=== PATIENT | female | born 1955 | race Caucasian/White ===

== ENCOUNTER 2018-06-11 16:04 | Emergency (ER) | payer MEDICARE ==
[~2018-06-11] VITALS: Ht 160 cm; Wt 151.5 kg
--- OUTSIDE RECORDS SUMMARY | 2018-06-11 16:18 | XMS REPORT ---
Author Author Omar Hopkins [facility] Address [address] [place], [place] [id number] Care Team Providers Care Coffee Host Name Role Phone Omar Hopkins PCP Omar Hopkins PreferredProvider Allergies and Adverse Reactions Name Reaction Notes NO KNOWN DRUG ALLERGIES Plan of Treatment Planned Activity Comments Planned Date Planned Time Plan/Goal Discuss Bariatric Surgery options. She needs to lose 100 lbs in order to have Left Total Knee Replacement. Medications Active Name Start Date Estimated Completion Date SIG Comments Multivitamin Oral Tablet take 1 tablet by oral route daily aspirin 81 mg oral tablet take 1 tablet (81 mg) by oral route once daily Fish Oil 1,000 mg oral capsule 04/19/2010 take 2 capsules by oral route daily valsartan-hydrochlorothiazide 160-12.5 mg oral tablet 05/13/2013 TAKE ONE TABLET BY MOUTH EVERY DAY simvastatin 20 mg oral tablet 08/11/2013 TAKE ONE TABLET BY MOUTH EVERY DAY IN THE EVENING simvastatin 20 mg oral tablet 11/27/2013 TAKE ONE TABLET BY MOUTH EVERY DAY IN THE EVENING valsartan-hydrochlorothiazide 160-12.5 mg oral tablet 05/05/2014 TAKE ONE TABLET BY MOUTH EVERY DAY simvastatin 20 mg oral tablet 06/09/2014 TAKE ONE TABLET BY MOUTH ONCE DAILY AT BEDTIME valsartan-hydrochlorothiazide 160-12.5 mg oral tablet 09/08/2014 TAKE ONE TABLET BY MOUTH ONCE DAILY valsartan-hydrochlorothiazide 160-12.5 mg oral tablet 12/01/2014 TAKE ONE TABLET BY MOUTH ONCE DAILY simvastatin 20 mg oral tablet 12/07/2014 TAKE ONE TABLET BY MOUTH ONCE DAILY AT BEDTIME amlodipine 10 mg oral tablet 02/15/2015 TAKE ONE TABLET BY MOUTH ONCE DAILY valsartan-hydrochlorothiazide 160-12.5 mg oral tablet 05/31/2015 TAKE ONE TABLET BY MOUTH ONCE DAILY simvastatin 20 mg oral tablet 06/07/2015 TAKE ONE TABLET BY MOUTH ONCE DAILY AT BEDTIME valsartan-hydrochlorothiazide 160-12.5 mg oral tablet 11/30/2015 TAKE ONE TABLET BY MOUTH ONCE DAILY simvastatin 20 mg oral tablet 12/06/2015 TAKE ONE TABLET BY MOUTH ONCE DAILY AT BEDTIME amlodipine 10 mg oral tablet 02/07/2016 TAKE ONE TABLET BY MOUTH ONCE DAILY amlodipine 10 mg oral tablet 05/08/2016 TAKE ONE TABLET BY MOUTH ONCE DAILY valsartan-hydrochlorothiazide 160-12.5 mg oral tablet 05/30/2016 TAKE ONE TABLET BY MOUTH ONCE DAILY magnesium 250 mg oral tablet take 1 tablet by oral route daily potassium 99 mg oral tablet take 1 tablet by oral route daily ibuprofen 800 mg oral tablet 12/13/2017 TAKE 1 TABLET BY MOUTH THREE TIMES DAILY NEEDED WITH FOOD irbesartan-hydrochlorothiazide 300-12.5 mg oral tablet 01/11/2018 01/06/2019 take 1 tablet by oral route once daily for 90 days Name Start Date Expiration Date SIG Comments Augmentin 500-125 mg oral tablet 02/06/2012 02/13/2012 take 1 tablet by oral route every 12 hours for 7 days Diflucan 100 mg oral tablet 02/06/2012 02/09/2012 take 1 tablet (100 mg) by oral route once daily amoxicillin 500 mg oral capsule 09/20/2012 09/30/2012 take 1 capsule (500 mg) by oral route 3 times per day for 10 days simvastatin 20 mg oral tablet 01/08/2013 02/07/2013 TAKE ONE TABLET BY MOUTH EVERY DAY IN THE EVENING amlodipine 10 mg oral tablet 11/25/2013 05/19/2015 TAKE ONE TABLET BY MOUTH EVERY DAY Augmentin 500-125 mg oral tablet 01/12/2015 01/19/2015 take 1 tablet by oral route every 12 hours for 7 days clindamycin HCl 300 mg oral capsule 07/25/2016 08/01/2016 take 1 capsule (300 mg) by oral route 2 times per day for 7 days simvastatin 20 mg oral tablet 03/19/2017 03/19/2017 TAKE ONE TABLET BY MOUTH ONCE DAILY AT BEDTIME amlodipine 10 mg oral tablet 07/31/2017 07/31/2017 TAKE ONE TABLET BY MOUTH ONCE DAILY Discontinued Name Start Date Discontinued Date SIG Comments niacin 500 mg oral tablet extended release 24 hr 04/07/2011 take 1 tablets (500 mg) by oral route once daily Starting on Simvastatin Calcium 600mg 08/07/2017 one tablet daily Vesicare 5 mg oral tablet 04/28/2011 09/19/2011 take 1 tablet by oral route daily for 30 days Osteo Bi-Flex (5-Loxin) 1,500-400-100 mg-unit-mg oral tablet 04/16/2013 take 1 tablet by oral route daily Diovan HCT 160-12.5 mg oral tablet 04/23/2012 11/27/2013 TAKE ONE TABLET BY MOUTH EVERY DAY generic on list Medrol (Ace) 4 mg oral tablets,dose pack 09/20/2012 12/12/2012 take as directed nystatin-triamcinolone 100,000-0.1 unit/g-% topical cream 12/12/20122012 apply to affected area(s) by topical route 2 times a day fexofenadine 180 mg oral tablet 12/12/2012 04/16/2013 take 1 tablet (180 mg) by oral route once daily Osteo Bi-Flex 250-200 mg oral tablet 08/07/2017 take 1 tablet by oral route daily prednisone 20 mg oral tablet 02/23/2015 03/01/2016 take 3 tablets (60 mg) by oral route once daily for 3 days then 2 tablets (40 mg) daily for 2 days cyclobenzaprine 10 mg oral tablet 02/27/2015 03/01/2016 take 1 tablet (10 mg ) by oral route 3 times per day promethazine-codeine 6.25-10 mg/5 mL oral syrup 07/25/2016 02/09/2017 take 5 milliliters by oral route every 6 hours as needed, not to exceed 30 mL in 24 hours cyclobenzaprine 10 mg oral tablet 02/09/2017 08/07/2017 take 1 tablet (10 mg) by oral route at bedtime valsartan-hydrochlorothiazide 160-12.5 mg oral tablet 10/18/2017 11/28/2017 TAKE ONE TABLET BY MOUTH ONCE DAILY for 90 days Infant Caregiver recall olmesartan-hydrochlorothiazide 40-12.5 mg oral tablet 11/28/2017 11/28/2017 take 1 tablet by oral route once daily for 90 days losartan-hydrochlorothiazide 100-12.5 mg oral tablet 11/28/2017 01/11/2018 take 1 tablet by oral route once daily for 90 days Problem List Description Status Onset Arthritis unspecified Active Hyperlipidemia Active Hypertension Active Vital Signs Date Time BP-Sys(mm[Hg] BP-Jany(mm[Hg]) HR(bpm) RR(rpm) Temp WT HT HC BMI BSA BMI Percentile O2 Sat(%) 08/07/2017 8:02:00 AM 122 mmHg 60 mmHg 74 bpm 22 rpm 98.2 F 366 lbs 64 in 62.8231 kg/m 2.738 m 97 % 02/09/2017 8:06:00 AM 144 mmHg 82 mmHg 77 bpm 16 rpm 97.7 F 398 lbs 64 in 68.32 kg/m2 2.86 m2 97 % 07/25/2016 9:55:00 AM 127 mmHg 72 mmHg 76 bpm 22 rpm 98.1 F 393.5 lbs 63 in 69.7047 kg/m 2.8167 m 97 % 05/17/2016 9:36:00 AM 132 mmHg 72 mmHg 76 bpm 20 rpm 97.2 F 396.25 lbs 64 in 68.02 kg/m2 2.85 m2 97 % 03/01/2016 7:58:00 AM 136 mmHg 70 mmHg 85 bpm 20 rpm 98.1 F 391 lbs 64 in 67.1143 kg/m 2.8299 m 95 % 02/23/2015 8:35:00 AM 124 mmHg 70 mmHg 80 bpm 18 rpm 97.1 F 64 in 01/12/2015 9:50:00 AM 132 mmHg 88 mmHg 90 bpm 22 rpm 98.5 F 387 lbs 64 in 66.43 kg/m2 2.82 m2 97 % 11/27/2013 10:36:00 AM 142 mmHg 80 mmHg 78 bpm 22 rpm 97.9 F 381 lbs 64 in 65.3978 kg/m 2.7935 m 97 % 04/16/2013 8:04:00 AM 138 mmHg 70 mmHg 88 bpm 22 rpm 98.1 F 388 lbs 64 in 66.60 kg/m2 2.82 m2 98 % 01/14/2013 9:54:00 AM 136 mmHg 70 mmHg 88 bpm 24 rpm 97.1 F 386 lbs 64 in 66.2561 kg/m 2.8118 m 97 % 12/12/2012 9:47:00 AM 134 mmHg 78 mmHg 70 bpm 16 rpm 97.8 F 381 lbs 64 in 65.40 kg/m2 2.79 m2 09/20/2012 10:27:00 AM 136 mmHg 84 mmHg 82 bpm 22 rpm 98.2 F 384.2 lbs 64 in 65.9471 kg/m 2.8052 m 96 % 04/18/2012 7:59:00 AM 138 mmHg 72 mmHg 70 bpm 18 rpm 98 F 377 lbs 64 in 64.71 kg/m2 2.78 m2 02/06/2012 8:29:00 AM 138 mmHg 70 mmHg 72 bpm 18 rpm 98.1 F 371 lbs 64 in 63.6814 kg/m 2.7566 m 09/19/2011 10:57:00 AM 136 mmHg 72 mmHg 68 bpm 18 rpm 98 F 371 lbs 64 in 63.68 kg/m2 2.76 m2 04/07/2011 8:43:00 AM 144 mmHg 78 mmHg 72 bpm 18 rpm 98.2 F 396 lbs 64 in 67.9725 kg/m 2.848 m 04/19/2010 1:51:00 PM 142 mmHg 80 mmHg 76 bpm 16 rpm 98.7 F 382 lbs 64 in 65.57 kg/m2 2.80 m2 04/20/2009 8:23:00 AM 132 mmHg 78 mmHg 70 bpm 24 rpm 98.3 F 377 lbs 64 in 64.7112 kg/m 2.7788 m Social History Name Description Comments Tobacco Former smoker for 2 years History of Procedures Date Ordered Description Order Status 02/23/2015 12:00 AM X-RAY EXAM OF HIP Reviewed 02/23/2015 12:00 AM X-RAY EXAM OF KNEE 3 Reviewed 03/30/2011 12:00 AM COMPREHEN METABOLIC PANEL Reviewed 03/30/2011 12:00 AM LIPID PANEL Reviewed 03/30/2011 12:00 AM GLYCOSYLATED HEMOGLOBIN TEST Reviewed 04/07/2011 12:00 AM CYTOPATH C/V THIN LAYER Reviewed 04/07/2011 12:00 AM MAMMOGRAM SCREENING Reviewed 05/08/2011 12:00 AM ASSAY GLUCOSE BLOOD QUANT Reviewed 02/18/2016 12:00 AM COMPREHEN METABOLIC PANEL Reviewed 02/18/2016 12:00 AM LIPID PANEL Reviewed 02/18/2016 12:00 AM GLYCOSYLATED HEMOGLOBIN TEST Reviewed 02/18/2016 12:00 AM MICROALBUMIN QUANTITATIVE Reviewed 02/18/2016 12:00 AM VITAMIN B-12 Reviewed 05/17/2016 12:00 AM RADEX SHOULDER COMPLETE MINIMUM 2 VIEWS Reviewed 05/17/2016 12:00 AM RADEX HUMERUS MINIMUM 2 VIEWS Reviewed 05/17/2016 12:00 AM Decadron 8mg Injection Reviewed 05/17/2016 12:00 AM Depo-Medrol 80mg Injection Reviewed 09/19/2011 12:00 AM TDAP VACCINE 7 YRS/> IM Reviewed 04/20/2009 12:00 AM COMPREHEN METABOLIC PANEL Reviewed 04/20/2009 12:00 AM LIPID PANEL Reviewed 04/20/2009 12:00 AM GLYCOSYLATED HEMOGLOBIN TEST Reviewed 04/20/2009 12:00 AM MAMMOGRAM SCREENING Reviewed 04/09/2012 12:00 AM COMPREHEN METABOLIC PANEL Reviewed 04/09/2012 12:00 AM LIPID PANEL Reviewed 04/09/2012 12:00 AM GLYCOSYLATED HEMOGLOBIN TEST Reviewed 04/26/2012 12:00 AM MAMMOGRAM SCREENING Reviewed 04/18/2012 12:00 AM ASSAY GLUCOSE BLOOD QUANT Reviewed 07/17/2017 12:00 AM COMPLETE CBC W/AUTO DIFF WBC Reviewed 07/17/2017 12:00 AM COMPREHEN METABOLIC PANEL Reviewed 07/17/2017 12:00 AM LIPID PANEL Reviewed 07/17/2017 12:00 AM GLYCOSYLATED HEMOGLOBIN TEST Reviewed 04/01/2013 12:00 AM COMPREHEN METABOLIC PANEL Reviewed 04/01/2013 12:00 AM LIPID PANEL Reviewed 04/01/2013 12:00 AM GLYCOSYLATED HEMOGLOBIN TEST Reviewed 04/16/2013 12:00 AM CYTOPATH C/V THIN LAYER Reviewed 04/26/2013 12:00 AM MAMMOGRAM SCREENING Reviewed 04/20/2009 12:00 AM CYTOPATH C/V THIN LAYER Reviewed 04/19/2010 12:00 AM COMPREHEN METABOLIC PANEL Reviewed 04/19/2010 12:00 AM LIPID PANEL Reviewed 04/19/2010 12:00 AM GLYCOSYLATED HEMOGLOBIN TEST Reviewed 04/19/2010 12:00 AM CYTOPATH C/V THIN LAYER Reviewed 04/27/2010 12:00 AM MAMMOGRAM SCREENING Reviewed 11/18/2013 12:00 AM COMPREHEN METABOLIC PANEL Reviewed 11/18/2013 12:00 AM LIPID PANEL Reviewed 11/18/2013 12:00 AM GLYCOSYLATED HEMOGLOBIN TEST Reviewed Results Summary Date and Description Results 03/31/2011 9:00 AM GLUCOSE 130.0 mg/dLSODIUM 139.0 mmol/LPOTASSIUM 4.40 mmol/ LCHLORIDE 104.0 mmol/LCO2 26.0 mmol/LBUN 21.0 mg/dLCREATININE 0.80 mg/dLSGOT/ AST 19.0 IU/LSGPT/ALT 25.0 IU/LALK PHOS 108.0 IU/LTOTAL PROTEIN 7.10 g/ dLALBUMIN 4.20 g/dLTOTAL BILI 0.40 mg/dLCALCIUM 10.20 mg/dLAGE 55 GFR NonAA 74 GFR AA 90 eGFR >60 mL/min/1.73 m2eGFR AA* >60 TRIGLYCERIDES 227.0 mg/ dLCHOLESTEROL 282.0 mg/dLHDL 45.0 mg/dLTOT CHOL/HDL 6.3 LDL (CALC) 192.0 mg/ dLGLYCOHEMOGLOBIN A1C 6.10 % 05/09/2011 9:42 AM GLUCOSE 131.0 mg/dL 04/10/2012 10:02 AM GLUCOSE 150.0 mg/dLSODIUM 140.0 mmol/LPOTASSIUM 4.60 mmol/ LCHLORIDE 104.0 mmol/LCO2 25.0 mmol/LBUN 21.0 mg/dLCREATININE 0.90 mg/dLSGOT/ AST 19.0 IU/LSGPT/ALT 26.0 IU/LALK PHOS 99.0 IU/LTOTAL PROTEIN 7.10 g/dLALBUMIN 4.20 g/dLTOTAL BILI 0.50 mg/dLCALCIUM 10.80 mg/dLAGE 56 GFR NonAA 65 GFR AA 79 eGFR 60 eGFR AA* 60 TRIGLYCERIDES 210.0 mg/dLCHOLESTEROL 241.0 mg/dLHDL 48.0 mg/ dLTOT CHOL/HDL 5.0 LDL (CALC) 151.0 mg/dLGLYCOHEMOGLOBIN A1C 6.30 % 04/18/2012 8:54 AM GLUCOSE 125.0 mg/dL 04/02/2013 8:58 AM TRIGLYCERIDES 210.0 mg/dLCHOLESTEROL 211.0 mg/dLHDL 49.0 mg/ dLTOT CHOL/HDL 4.3 LDL (CALC) 120.0 mg/dLGLUCOSE 125.0 mg/dLSODIUM 140.0 mmol/ LPOTASSIUM 4.20 mmol/LCHLORIDE 105.0 mmol/LCO2 25.0 mmol/LBUN 24.0 mg/ dLCREATININE 0.90 mg/dLSGOT/AST 23.0 IU/LSGPT/ALT 28.0 IU/LALK PHOS 111.0 IU/ LTOTAL PROTEIN 7.0 g/dLALBUMIN 4.30 g/dLTOTAL BILI 0.60 mg/dLCALCIUM 10.60 mg/ dLAGE 57 GFR NonAA 64 GFR AA 78 eGFR >60 mL/min/1.73 m2eGFR AA* >60 HGB A1C 6.90 %Est Avg Glucose 151.3 mg/dL 11/19/2013 9:05 AM TRIGLYCERIDES 210.0 mg/dLCHOLESTEROL 204.0 mg/dLHDL 51.0 mg/ dLTOT CHOL/HDL 4.0 LDL (CALC) 111.0 mg/dLGLUCOSE 120.0 mg/dLSODIUM 141.0 mmol/ LPOTASSIUM 4.40 mmol/LCHLORIDE 103.0 mmol/LCO2 25.0 mmol/LBUN 18.0 mg/ dLCREATININE 0.90 mg/dLSGOT/AST 24.0 IU/LSGPT/ALT 29.0 IU/LALK PHOS 98.0 IU/ LTOTAL PROTEIN 7.0 g/dLALBUMIN 4.10 g/dLTOTAL BILI 0.60 mg/dLCALCIUM 10.20 mg/ dLAGE 58 GFR NonAA 64 GFR AA 78 eGFR 60 eGFR AA* 60 HGB A1C 6.80 %Est Avg Glucose 148.5 mg/dL 02/22/2016 10:22 AM HGB A1C 6.50 %Est Avg Glucose 139.9 mg/dLGLUCOSE 129.0 mg/ dLSODIUM 143.0 mmol/LPOTASSIUM 4.40 mmol/LCHLORIDE 104.0 mmol/LCO2 24.0 mmol/ LBUN 25.0 mg/dLCREATININE 0.90 mg/dLSGOT/AST 25.0 IU/LSGPT/ALT 35.0 IU/LALK PHOS 96.0 IU/LTOTAL PROTEIN 7.10 g/dLALBUMIN 4.20 g/dLTOTAL BILI 0.50 mg/ dLCALCIUM 10.30 mg/dLAGE 60 GFR NonAA 64 GFR AA 78 eGFR >60 mL/min/1.73meGFR AA* >60 TRIGLYCERIDES 181.0 mg/dLCHOLESTEROL 201.0 mg/dLHDL 47.0 mg/dLTOT CHOL/ HDL 4.3 LDL (CALC) 118.0 mg/dLMICROALBUMIN UR <0.5 ug/mLVITAMIN B12 485.0 pg/mL 07/22/2017 1:00 PM GLUCOSE 123.0 mg/dLSODIUM 140.0 mmol/LPOTASSIUM 4.20 mmol/ LCHLORIDE 104.0 mmol/LCO2 26.0 mmol/LBUN 30.0 mg/dLCREATININE 1.10 mg/dLSGOT/ AST 23.0 IU/LSGPT/ALT 28.0 IU/LALK PHOS 93.0 IU/LTOTAL PROTEIN 7.60 g/dLALBUMIN 4.30 g/dLTOTAL BILI 0.50 mg/dLCALCIUM 11.20 mg/dLAGE 62 GFR NonAA 50 GFR AA 61 eGFR 50 eGFR AA* >60 WBC 8.3 RBC 4.33 HGB 13.20 g/dLHCT 40.30 %MCV 93.0 fLMCH 30.50 pgMCHC 32.80 g/dLRDW SD 44 RDW CV 12.80 %MPV 10.30 fLPLT 300 NRBC# 0.00 NRBC% 0.0 %NEUT 66.90 %%LYMP 23.50 %%MONO 7.60 %%EOS 1.60 %%BASO 0.20 %#NEUT 5.54 #LYMP 1.95 #MONO 0.63 #EOS 0.13 #BASO 0.02 MANUAL DIFF NOT IND HGB A1C 5.80 %Est Avg Glucose 119.8 mg/dLTRIGLYCERIDES 154.0 mg/dLCHOLESTEROL 186.0 mg/ dLHDL 46.0 mg/dLTOT CHOL/HDL 4.0 LDL (CALC) 109.0 mg/dL History Of Immunizations Name Date Admin [facility] Name Mf Code Trade Name Lot# Route Inj Vis Given Vis Pub CVX Tdap 09/19/2011 [employer] SKB ADACEL [id number] Intramuscular Right Deltoid 09/19/2011 03/18/2008 115 Influenza 04/03/2015 Not Entered NE AFLURIA Not Entered Not Entered 05/01/201805/01/2018 141 Influenza 01/22/2016 Not Entered NE AFLURIA Not Entered Not Entered 05/01/201805/01/2018 141 History of Past Illness Name Date of Onset Comments Hypertension Apr 06 2009 1:45PM Glucose Intolerance Apr 06 2009 1:45PM Hyperlipidemia Apr 06 2009 1:45PM Screening Mammogram Apr 06 2009 1:45PM Routine gynecological examination Apr 20 2009 8:25AM Hypertension Stable Apr 20 2009 8:25AM Hyperlipidemia, unspecified Stable Apr 20 2009 8:25AM Arthritis unspecified Hyperlipidemia Hypertension Hypertension Apr 16 2010 1:41PM Glucose Intolerance Apr 16 2010 1:41PM Hyperlipidemia Apr 16 2010 1:41PM Hyperglycemia Apr 16 2010 1:41PM Routine gynecological examination Apr 19 2010 1:52PM Overactive bladder Apr 19 2010 1:52PM Hypertension Mar 30 2011 12:05PM Glucose Intolerance Mar 30 2011 12:05PM Hyperlipidemia Mar 30 2011 12:05PM Hyperglycemia Mar 30 2011 12:05PM Routine gynecological examination Apr 07 2011 8:45AM Overactive bladder Apr 07 2011 8:45AM Screening Examination for Breast Cancer Apr 07 2011 8:45AM Hyperglycemia Apr 07 2011 8:45AM Laceration 2nd digit right hand Sep 19 2011 10:59AM Acute Pharyngitis Feb 06 2012 8:30AM Hypertension Apr 09 2012 11:59AM Glucose Intolerance Apr 09 2012 11:59AM Hyperlipidemia Apr 09 2012 11:59AM Hyperglycemia Apr 09 2012 11:59AM Screening Examination for Breast Cancer Apr 18 2012 8:02AM Hypertension Apr 18 2012 8:02AM Hyperlipidemia, Mixed Apr 18 2012 8:02AM Hyperglycemia Apr 18 2012 8:02AM Upper Respiratory Infections Sep 20 2012 10:32AM Eczema Dec 12 2012 9:49AM Eustachian Tube Dysfunction, Bilateral Dec 12 2012 9:49AM Worried well Jan 14 2013 9:56AM Hypertension Apr 01 2013 11:57AM Glucose Intolerance Apr 01 2013 11:57AM Hyperlipidemia Apr 01 2013 11:57AM Hyperglycemia Apr 01 2013 11:57AM Routine gynecological examination Apr 16 2013 8:06AM Screening Examination for Breast Cancer Apr 16 2013 8:06AM Hypertension Nov 18 2013 11:58AM Glucose Intolerance Nov 18 2013 11:58AM Hyperlipidemia Nov 18 2013 11:58AM Hyperglycemia Nov 18 2013 11:58AM Essential Hypertension Nov 27 2013 10:39AM Diabetes Mellitus, Type II Nov 27 2013 10:39AM Hyperlipidemia, Mixed Nov 27 2013 10:39AM Sinusitis, Acute Jan 12 2015 9:52AM Bronchitis, Acute Jan 12 2015 9:52AM Arthritis unspecified Feb 23 2015 8:37AM Hypertension Feb 18 2016 9:16AM Diabetes Mellitus, Type II Feb 18 2016 9:16AM Hyperlipidemia Feb 18 2016 9:16AM Routine gynecological examination Mar 01 2016 8:11AM Screening Examination for Breast Cancer Mar 01 2016 8:11AM Visit for screening mammogram Mar 01 2016 8:11AM Hyperlipidemia Mar 01 2016 8:11AM Hypertension Mar 01 2016 8:11AM Controlled diabetes mellitus type II without complication Mar 01 2016 8:11AM Pain in joint of right shoulder May 17 2016 9:41AM Acute bronchitis Jul 25 2016 9:57AM Acute non-recurrent maxillary sinusitis Jul 25 2016 9:57AM Hyperlipidemia Feb 09 2017 8:08AM Morbid Obesity Feb 09 2017 8:08AM Hypertension Feb 09 2017 8:08AM Hypertension Jul 17 2017 10:08AM Hyperlipemia Jul 17 2017 10:08AM Morbid obesity Jul 17 2017 10:08AM Family history of diabetes mellitus Jul 17 2017 10:08AM Hyperlipidemia Aug 07 2017 8:05AM Morbid Obesity Aug 07 2017 8:05AM Hypertension Aug 07 2017 8:05AM Payers Insurance Name Company Name Plan Name Plan Number Policy Number Policy Group Number Start Date Medicare [facility] Medicare [facility] [id number] Tuesday, 2007 Medicare Part B Medicare Of [place] [id number] Tuesday, 2007 Medicare Part A Medicare Part A [id number] Tuesday, 2007 Medicare Part A Medicare - Lab/Xray [id number] Tuesday, May 01, 2007 History of Encounters Visit Date Visit Type Provider 08/07/2017 Office visit Omar Hopkins DO 02/09/2017 Office visit Omar Hopkins DO 07/25/2016 Office visit Omar Hopkins DO 05/17/2016 Office visit Omar Hopkins DO 03/01/2016 Office visit Omar Hopkins DO 02/23/2015 Office visit Omar Hopkins DO 01/12/2015 Office visit Omar Hopkins DO 11/27/2013 Office visit Omar Hopkins DO 04/16/2013 Office visit Omar Hopkins DO 01/14/2013 Office visit Omar Hopkins DO 12/12/2012 Office visit Omar Hopkins DO 09/20/2012 Office visit Tricia Austin MANAGER POLICY 04/18/2012 Office visit Omar Hopkins DO 02/06/2012 Office visit Omar Hopkins DO 09/19/2011 Office visit Omar Hopkins DO 04/07/2011 Office visit Omar Hopkins DO 04/19/2010 Office visit Omar Hopkins DO 04/20/2009 Office visit Omar Hopkins DO 12/25/2008 Office visit Omar Hopkins DO
--- OUTSIDE RECORDS SUMMARY | 2018-06-11 16:19 | XMS REPORT ---
Author Author Omar Hopkins [facility] Address [address] [place], [place] [id number] Care Team Providers Care Manager Pet Name Role Phone Omar Hopkins PCP Unavailable Allergies and Adverse Reactions Name Reaction Notes NO KNOWN DRUG ALLERGIES Plan of Treatment Not available. Medications Active Name Start Date Estimated Completion Date SIG Comments Calcium 600mg one tablet daily Multivitamin Oral Tablet take 1 tablet by [...] BY MOUTH EVERY DAY IN THE EVENING Osteo Bi-Flex 250-200 mg oral tablet take 1 tablet by oral route daily simvastatin 20 mg oral tablet 11/27/2013 TAKE [...] TAKE ONE TABLET BY MOUTH ONCE DAILY Name Start Date Expiration Date SIG Comments [...] route every 12 hours for 7 days Discontinued Name Start Date Discontinued Date SIG Comments niacin 500 mg oral tablet extended release 24 hr 04/07/2011 take 1 tablets (500 mg) by oral route once daily Starting on Simvastatin Vesicare 5 mg oral tablet 04/28/2011 09/19/2011 [...] (180 mg) by oral route once daily prednisone 20 mg oral tablet 02/23/2015 03/01/2016 take 3 tablets (60 mg) by oral route once daily for 3 days then 2 tablets (40 mg) daily for 2 days cyclobenzaprine 10 mg oral tablet 02/27/2015 03/01/2016 take 1 tablet (10 mg ) by oral route 3 times per day Problem List Description Status Onset Arthritis unspecified Active Hyperlipidemia Active Hypertension Active Vital Signs Date Time BP-Sys(mm[Hg] BP-Jany(mm[Hg]) HR(bpm) RR(rpm) Temp WT HT HC BMI BSA BMI Percentile O2 Sat(%) 03/01/2016 7:58:00 AM 136 mmHg 70 mmHg 85 bpm 20 rpm 98.1 F 391 lbs 64 in 67.11 kg/m2 2.83 m2 95 % 02/23/2015 8:35:00 AM 124 mmHg 70 mmHg 80 bpm 18 rpm 97.1 F 64 in 01/12/2015 9:50:00 AM 132 mmHg 88 mmHg 90 bpm 22 rpm 98.5 F 387 lbs 64 in 66.43 kg/m2 2.82 m2 97 % 11/27/2013 10:36:00 AM 142 mmHg 80 mmHg 78 bpm 22 rpm 97.9 F 381 lbs 64 in 65.40 kg/m2 2.7935 m 97 % 04/16/2013 8:04:00 AM 138 mmHg 70 mmHg 88 bpm 22 rpm 98.1 F 388 lbs 64 in 66.5994 kg/m 2.82 m2 98 % 01/14/2013 9:54:00 AM 136 mmHg 70 mmHg 88 bpm 24 rpm 97.1 F 386 lbs 64 in 66.26 kg/m2 2.8118 m 97 % 12/12/2012 9:47:00 AM 134 mmHg 78 mmHg 70 bpm 16 rpm 97.8 F 381 lbs 64 in 65.3978 kg/m 2.79 m2 09/20/2012 10:27:00 AM 136 mmHg 84 mmHg 82 bpm 22 rpm 98.2 F 384.2 lbs 64 in 65.95 kg/m2 2.8052 m 96 % 04/18/2012 7:59:00 AM 138 mmHg 72 mmHg 70 bpm 18 rpm 98 F 377 lbs 64 in 64.7112 kg/m 2.78 m2 02/06/2012 8:29:00 AM 138 mmHg 70 mmHg 72 bpm 18 rpm 98.1 F 371 lbs 64 in 63.68 kg/m2 2.7566 m 09/19/2011 10:57:00 AM 136 mmHg 72 mmHg 68 bpm 18 rpm 98 F 371 lbs 64 in 63.6814 kg/m 2.76 m2 04/07/2011 8:43:00 AM 144 mmHg 78 mmHg 72 bpm 18 rpm 98.2 F 396 lbs 64 in 67.97 kg/m2 2.848 m 04/19/2010 1:51:00 PM 142 mmHg 80 mmHg 76 bpm 16 rpm 98.7 F 382 lbs 64 in 65.5695 kg/m 2.80 m2 04/20/2009 8:23:00 AM 132 mmHg 78 mmHg 70 bpm 24 rpm 98.3 F 377 lbs 64 in 64.71 kg/m2 2.7788 m Social History Name Description Comments [...] Reviewed 02/18/2016 12:00 AM VITAMIN B-12 Reviewed 09/19/2011 12:00 AM TDAP VACCINE 7 [...] 12:00 AM ASSAY GLUCOSE BLOOD QUANT Reviewed 04/01/2013 12:00 AM COMPREHEN METABOLIC PANEL [...] AM GLYCOSYLATED HEMOGLOBIN TEST Reviewed Results Summary Data and Description Results 04/20/2009 10:01 AM LDL 153.0 mg/dLCHOLESTEROL 258 mg/dLTRIGLYCERIDES 252.0 mg /dLHDL 51.0 mg/dLLDL 153.0 mg/dLTRIGLYCERIDES 252.0 mg/dLHDL 51.0 mg/ dLCHOLESTEROL 258 mg/dLGLUCOSE 116 SODIUM 144.0 mmol/LPOTASSIUM 4.80 mmol/ LCHLORIDE 105.0 mmol/LCO2 24.0 mmol/LBUN 18.0 mg/dLCREATININE 0.80 mg/dLSGOT/ AST 23.0 IU/LSGPT/ALT 26.0 IU/LALK PHOS 98.0 IU/LTOTAL PROTEIN 7.30 g/dLALBUMIN 4.20 g/dLTOTAL BILI 0.40 mg/dLCALCIUM 10.30 mg/dLeGFR >60 mL/minGLUCOSE 116 SODIUM 144.0 mmol/LPOTASSIUM 4.80 mmol/LCHLORIDE 105.0 mmol/LCO2 24.0 mmol/LBUN 18.0 mg/dLCREATININE 0.80 mg/dLSGOT/AST 23.0 IU/LSGPT/ALT 26.0 IU/LALK PHOS 98.0 IU/LTOTAL PROTEIN 7.30 g/dLALBUMIN 4.20 g/dLTOTAL BILI 0.40 mg/dLCALCIUM 10.30 mg/dLeGFR >60 mL/min 03/31/2011 9:00 AM GLUCOSE 130.0 mg/dLSODIUM 139.0 mmol/LPOTASSIUM 4.40 mmol/ LCHLORIDE 104.0 mmol/LCO2 26.0 mmol/LBUN 21.0 mg/dLCREATININE 0.80 mg/dLSGOT/ AST 19.0 IU/LSGPT/ALT 25.0 IU/LALK PHOS 108.0 IU/LTOTAL PROTEIN 7.10 g/ dLALBUMIN 4.20 g/dLTOTAL BILI 0.40 mg/dLCALCIUM 10.20 mg/dLeGFR >60 mL/min/1.73 [id number] 227.0 mg/dLCHOLESTEROL 282.0 mg/dLHDL 45.0 mg/dLLDL (CALC) 192.0 mg/dL 05/09/2011 9:42 AM GLUCOSE 131.0 mg/dL 04/10/2012 10:02 AM GLUCOSE 150.0 mg/dLSODIUM 140.0 mmol/LPOTASSIUM 4.60 mmol/ LCHLORIDE 104.0 mmol/LCO2 25.0 mmol/LBUN 21.0 mg/dLCREATININE 0.90 mg/dLSGOT/ AST 19.0 IU/LSGPT/ALT 26.0 IU/LALK PHOS 99.0 IU/LTOTAL PROTEIN 7.10 g/dLALBUMIN 4.20 g/dLTOTAL BILI 0.50 mg/dLCALCIUM 10.80 mg/dLeGFR 60 TRIGLYCERIDES 210.0 mg/ dLCHOLESTEROL 241.0 mg/dLHDL 48.0 mg/dLLDL (CALC) 151.0 mg/dL 04/18/2012 8:54 AM GLUCOSE 125.0 mg/dL 04/02/2013 8:58 AM TRIGLYCERIDES 210.0 mg/dLCHOLESTEROL 211.0 mg/dLHDL 49.0 mg/ dLLDL (CALC) 120.0 mg/dLGLUCOSE 125.0 mg/dLSODIUM 140.0 mmol/LPOTASSIUM 4.20 mmol/LCHLORIDE 105.0 mmol/LCO2 25.0 mmol/LBUN 24.0 mg/dLCREATININE 0.90 mg/ dLSGOT/AST 23.0 IU/LSGPT/ALT 28.0 IU/LALK PHOS 111.0 IU/LTOTAL PROTEIN 7.0 g/ dLALBUMIN 4.30 g/dLTOTAL BILI 0.60 mg/dLCALCIUM 10.60 mg/dLeGFR >60 mL/min/1.73 m2HGB A1C 6.90 %Est Avg Glucose 151.3 mg/dL 11/19/2013 9:05 AM TRIGLYCERIDES 210.0 mg/dLCHOLESTEROL 204.0 mg/dLHDL 51.0 mg/ dLLDL (CALC) 111.0 mg/dLGLUCOSE 120.0 mg/dLSODIUM 141.0 mmol/LPOTASSIUM 4.40 mmol/LCHLORIDE 103.0 mmol/LCO2 25.0 mmol/LBUN 18.0 mg/dLCREATININE 0.90 mg/ dLSGOT/AST 24.0 IU/LSGPT/ALT 29.0 IU/LALK PHOS 98.0 IU/LTOTAL PROTEIN 7.0 g/ dLALBUMIN 4.10 g/dLTOTAL BILI 0.60 mg/dLCALCIUM 10.20 mg/dLeGFR 60 HGB A1C 6.80 %Est Avg Glucose 148.5 mg/dL 02/22/2016 10:22 AM HGB A1C 6.50 %Est Avg Glucose 139.9 mg/dLGLUCOSE 129.0 mg/ dLSODIUM 143.0 mmol/LPOTASSIUM 4.40 mmol/LCHLORIDE 104.0 mmol/LCO2 24.0 mmol/ LBUN 25.0 mg/dLCREATININE 0.90 mg/dLSGOT/AST 25.0 IU/LSGPT/ALT 35.0 IU/LALK PHOS 96.0 IU/LTOTAL PROTEIN 7.10 g/dLALBUMIN 4.20 g/dLTOTAL BILI 0.50 mg/ dLCALCIUM 10.30 mg/dLeGFR >60 mL/min/1.73mTRIGLYCERIDES 181.0 mg/ dLCHOLESTEROL 201.0 mg/dLHDL 47.0 mg/dLLDL (CALC) 118.0 mg/dLMICROALBUMIN UR < 0.5 ug/mLVITAMIN B12 485.0 pg/mL History Of Immunizations Name Date Admin Mfg Name Mfg Code Trade Name Lot# Route Inj Vis Given Vis Pub CVX Tdap 09/19/2011 [employer] SKB ADACEL [id number] Intramuscular Right Deltoid 09/19/2011 03/18/2008 115 Influenza 04/03/2015 Not Entered NE Afluria Not Entered Not Entered 05/01/201505/01/2015 141 Influenza 01/22/2016 Not Entered NE Afluria Not Entered Not Entered 05/01/201505/01/2015 141 History of Past Illness Name Date [...] II without complication Mar 01 2016 8:11AM Payers Insurance Name Company Name Plan Name Plan Number Policy Number Policy Group Number Start Date Medicare Part A Medicare Part A [id number] Tuesday, 2007 Medicare Part A Medicare - Lab/Xray [id number] Tuesday, May 01, 2007 Medicare Part B Medicare Of [place] [id number] Tuesday, May 01, 2007 History of Encounters Visit Date Visit Type Provider 03/01/2016 Office visit Omar Hopkins DO 02/23/2015 Office visit Omar Hopkins DO 01/12/2015 Office visit Omar Hopkins DO 11/27/2013 Office visit Omar Hopkins DO 04/16/2013 Office visit Omar Hopkins DO 01/14/2013 Office visit Omar Hopkins DO 12/12/2012 Office visit Omar Hopkins DO 09/20/2012 Office visit Tricia Austin APRN 04/18/2012 Office visit Omar Hopkins DO 02/06/2012 Office visit Omar Hopkins DO 09/19/2011 Office visit Omar Hopkins DO 04/07/2011 Office visit Omar Hopkins DO 04/19/2010 Office visit Omar Hopkins DO 04/20/2009 Office visit Omar Hopkins DO 12/25/2008 Office visit Omar Hopkins DO
--- OUTSIDE RECORDS SUMMARY | 2018-06-11 16:19 | XMS REPORT ---
Author Author Omar Hopkins [facility] Address [address] [place], [place] [id number] Care Team Providers Care Level Glass Vial Filler Name Role Phone Omar Hopkins PCP Omar [...] route daily ibuprofen 800 mg oral tablet 08/11/2017 take 1 tablet (800 mg) by oral route 3 times per day with food as needed valsartan-hydrochlorothiazide 160-12.5 mg oral tablet 10/18/2017 04/16/2018 TAKE ONE TABLET BY MOUTH ONCE DAILY for 90 days olmesartan-hydrochlorothiazide 40-12.5 mg oral tablet 11/28/2017 11/23/2018 take 1 tablet by oral route once [...] (10 mg) by oral route at bedtime Problem List Description Status Onset Arthritis unspecified [...] mg/dL History Of Immunizations Name Date Admin Mfg Name Mfg Code Trade Name Lot# Route Inj Vis Given Vis Pub CVX Tdap 09/19/2011 [employer] SKB ADACEL [id number] Intramuscular Right Deltoid 09/19/2011 03/18/2008 115 Influenza [...] Number Policy Group Number Start Date Medicare RHC Medicare RHC [id number] Tuesday, 2007 Medicare Part B Medicare Of [place] [id number] Tuesday, 2007 Medicare Part A Medicare Part A [id number] Tuesday, 2007 Medicare Part A Medicare - Lab/Xray [id number] Tuesday, May 01, 2007 History of Encounters [...] Omar Hopkins DO 01/14/2013 Office visit Omar Kellie DO 12/12/2012 Office visit Omar Hopkins DO 09/20/2012 Office visit Tricia Austin MANAGER WHOLESALE 04/18/2012 Office visit Omar Hopkins DO 02/06/2012 Office visit Omar Hopkins DO 09/19/2011 Office visit Omar Hopkins DO 04/07/2011 Office visit Omar Hopkins DO 04/19/2010 Office visit Omar Hopkins DO 04/20/2009 Office visit Omar Balderaste DO 12/25/2008 Office visit Omar Hopkins DO
--- OUTSIDE RECORDS SUMMARY | 2018-06-11 16:20 | XMS REPORT ---
Author Author Omar Hopkins [facility] Address [address] [place], [place] [id number] Care Team Providers Care Grocery Worker Name Role Phone Omar Hopkins PCP Omar [...] times per day with food as needed Name Start Date Expiration Date SIG Comments [...] AT BEDTIME valsartan-hydrochlorothiazide 160-12.5 mg oral tablet 05/20/2017 05/20/2017 TAKE ONE TABLET BY MOUTH ONCE DAILY amlodipine 10 mg oral tablet 07/31/2017 07/31/2017 [...] Vis Given Vis Pub CVX Tdap 09/19/2011 [employer] SKB ADACEL [id number] Intramuscular Right Deltoid 09/19/2011 03/18/2008 115 Influenza 04/03/2015 Not Entered NE AFLURIA Not Entered Not Entered 05/01/201705/01/2017 141 Influenza 01/22/2016 Not Entered NE AFLURIA Not Entered Not Entered 05/01/201705/01/2017 141 History of Past Illness Name Date [...] Number Start Date Medicare RHC Medicare RHC [id number] Tuesday, 2007 Medicare Part B Medicare Of [place] [id number] Tuesday, 2007 Medicare Part A Medicare Part A [id number] Tuesday, 2007 Medicare Part A Medicare - Lab/Xray [id number] Tuesday, May 01, 2007 History of Encounters [...] Omar Hopkins DO 04/16/2013 Office visit Omar Balderaste DO 01/14/2013 Office visit Omar Kellie DO 12/12/2012 Office visit Omar Hopkins DO 09/20/2012 Office visit Tricia Austin COSTUME SHOP COORDINATOR 04/18/2012 Office visit Omar Hopkins DO 02/06/2012 Office visit Omar Hopkins DO 09/19/2011 Office visit Omar Hopkins DO 04/07/2011 Office visit Omar Hopkins DO 04/19/2010 Office visit Omar Balderaste DO 04/20/2009 Office visit Omar Kellie DO 12/25/2008 Office visit Omar Hopkins DO
--- OUTSIDE RECORDS SUMMARY | 2018-06-11 16:21 | XMS REPORT ---
Author Author Omar Hopkins [facility] Address [address] [place], [place] [address] Care Team Providers Care Certified Respiratory Therapist Name Role Phone Omar Hopkins PCP Unavailable [...] TAKE ONE TABLET BY MOUTH EVERY DAY Osteo Bi-Flex 250-200 mg oral tablet take [...] TAKE ONE TABLET BY MOUTH ONCE DAILY prednisone 20 mg oral tablet 02/23/2015 take 3 tablets (60 mg) by oral route once daily for 3 days then 2 tablets (40 mg) daily for 2 days cyclobenzaprine 10 mg oral tablet 02/27/2015 take 1 tablet (10 mg) by oral route 3 times per day Name Start Date Expiration Date SIG Comments [...] BY MOUTH EVERY DAY IN THE EVENING Augmentin 500-125 mg oral tablet 01/12/2015 01/19/2015 [...] (180 mg) by oral route once daily Problem List Description Status Onset Arthritis unspecified Active Hyperlipidemia Active Hypertension Active Vital Signs Date Time BP-Sys(mm[Hg] BP-Jany(mm[Hg]) HR(bpm) RR(rpm) Temp WT HT HC BMI BSA BMI Percentile O2 Sat(%) 02/23/2015 8:35:00 AM 124 mmHg 70 mmHg 80 bpm 18 rpm 97.1 F 64 in 01/12/2015 9:50:00 AM 132 mmHg 88 mmHg 90 bpm 22 rpm 98.5 F 387 lbs 64 in 66.4277 kg/m 2.8154 m 97 % 11/27/2013 10:36:00 AM 142 mmHg 80 mmHg 78 bpm 22 rpm 97.9 F 381 lbs 64 in 65.40 kg/m2 2.79 m2 97 % 04/16/2013 8:04:00 AM 138 mmHg 70 mmHg 88 bpm 22 rpm 98.1 F 388 lbs 64 in 66.5994 kg/m 2.8191 m 98 % 01/14/2013 9:54:00 AM 136 mmHg 70 mmHg 88 bpm 24 rpm 97.1 F 386 lbs 64 in 66.26 kg/m2 2.81 m2 97 % 12/12/2012 9:47:00 AM 134 mmHg 78 mmHg 70 bpm 16 rpm 97.8 F 381 lbs 64 in 65.3978 kg/m 2.7935 m 09/20/2012 10:27:00 AM 136 mmHg 84 mmHg 82 bpm 22 rpm 98.2 F 384.2 lbs 64 in 65.95 kg/m2 2.81 m2 96 % 04/18/2012 7:59:00 AM 138 mmHg 72 mmHg 70 bpm 18 rpm 98 F 377 lbs 64 in 64.7112 kg/m 2.7788 m 02/06/2012 8:29:00 AM 138 mmHg 70 mmHg 72 bpm 18 rpm 98.1 F 371 lbs 64 in 63.68 kg/m2 2.76 m2 09/19/2011 10:57:00 AM 136 mmHg 72 mmHg 68 bpm 18 rpm 98 F 371 lbs 64 in 63.6814 kg/m 2.7566 m 04/07/2011 8:43:00 AM 144 mmHg 78 mmHg 72 bpm 18 rpm 98.2 F 396 lbs 64 in 67.97 kg/m2 2.85 m2 04/19/2010 1:51:00 PM 142 mmHg 80 mmHg 76 bpm 16 rpm 98.7 F 382 lbs 64 in 65.5695 kg/m 2.7972 m 04/20/2009 8:23:00 AM 132 mmHg 78 mmHg 70 bpm 24 rpm 98.3 F 377 lbs 64 in 64.71 kg/m2 2.78 m2 Social History Name Description Comments Tobacco Former [...] 12:00 AM ASSAY GLUCOSE BLOOD QUANT Reviewed 09/19/2011 12:00 AM TDAP VACCINE 7 [...] BILI 0.40 mg/dLCALCIUM 10.20 mg/dLeGFR >60 mL/min/1.73 [id number] 227.0 mg/dLCHOLESTEROL 282.0 mg/dLHDL 45.0 mg/dLLDL (CALC) [...] BILI 0.60 mg/dLCALCIUM 10.60 mg/dLeGFR >60 mL/min/1.73 m2Est Avg Glucose 151.3 mg/dL 11/19/2013 9:05 AM TRIGLYCERIDES 210.0 mg/dLCHOLESTEROL 204.0 mg/dLHDL 51.0 mg/ dLLDL (CALC) 111.0 mg/dLGLUCOSE 120.0 mg/dLSODIUM 141.0 mmol/LPOTASSIUM 4.40 mmol/LCHLORIDE 103.0 mmol/LCO2 25.0 mmol/LBUN 18.0 mg/dLCREATININE 0.90 mg/ dLSGOT/AST 24.0 IU/LSGPT/ALT 29.0 IU/LALK PHOS 98.0 IU/LTOTAL PROTEIN 7.0 g/ dLALBUMIN 4.10 g/dLTOTAL BILI 0.60 mg/dLCALCIUM 10.20 mg/dLeGFR 60 Est Avg Glucose 148.5 mg/dL History Of Immunizations Name Date Admin Mfg Name Mfg Code Trade Name Lot# Route Inj Vis Given Vis Pub CVX Tdap 09/19/2011 [employer] SKB ADACEL [id number] Intramuscular Right Deltoid 09/19/2011 03/18/2008 115 History of Past Illness Name Date of [...] 9:52AM Arthritis unspecified Feb 23 2015 8:37AM Payers Insurance Name Company Name Plan Name Plan Number Policy Number Policy Group Number Start Date Medicare Part A Medicare Part A [id number] Tuesday, 2007 Medicare Part B Medicare Of [place] [id number] Tuesday, 2007 History of Encounters Visit Date Visit Type Provider 02/23/2015 Office visit Omar Hopkins DO 01/12/2015 [...]
--- OUTSIDE RECORDS SUMMARY | 2018-06-11 16:21 | XMS REPORT ---
Author Author Omar Hopkins [facility] Address [address] [place], [place] [id number] Care Team Providers Care X Ray Equipment Servicer Name Role Phone Omar Hopkins PCP Unavailable Omar Hopkins PreferredProvider Unavailable Allergies and Adverse Reactions Name Reaction [...] ONCE DAILY simvastatin 20 mg oral tablet 03/13/2016 TAKE ONE TABLET BY MOUTH ONCE DAILY AT BEDTIME amlodipine 10 mg oral tablet 05/08/2016 TAKE ONE TABLET BY MOUTH ONCE DAILY cyclobenzaprine 10 mg oral tablet 05/17/2016 take 1 tablet (10 mg) by oral route at bedtime Name Start Date Expiration Date SIG Comments [...] HC BMI BSA BMI Percentile O2 Sat(%) 05/17/2016 9:36:00 AM 132 mmHg 72 mmHg [...] mg/dLCHOLESTEROL 258 mg/dLTRIGLYCERIDES 252.0 mg /dLHDL 51.0 mg/dLTOT CHOL/HDL 5.1 LDL 153.0 mg/dLTRIGLYCERIDES 252.0 mg/dLTOT CHOL/HDL 5.1 HDL 51.0 mg/dLCHOLESTEROL 258 mg/dLGLYCOHEMOGLOBIN A1C 6.3 GLYCOHEMOGLOBIN A1C 6.3 GLUCOSE 116 SODIUM 144.0 mmol/LPOTASSIUM 4.80 mmol/ LCHLORIDE 105.0 mmol/LCO2 24.0 mmol/LBUN 18.0 mg/dLCREATININE 0.80 mg/dLSGOT/ AST 23.0 IU/LSGPT/ALT 26.0 IU/LALK PHOS 98.0 IU/LTOTAL PROTEIN 7.30 g/dLALBUMIN 4.20 g/dLTOTAL BILI 0.40 mg/dLCALCIUM 10.30 mg/dLAGE 53 GFR NonAA 75 GFR AA 91 eGFR >60 mL/mineGFR AA* >60 GLUCOSE 116 SODIUM 144.0 mmol/LPOTASSIUM 4.80 mmol/ LCHLORIDE 105.0 mmol/LCO2 24.0 mmol/LBUN 18.0 mg/dLCREATININE 0.80 mg/dLSGOT/ AST 23.0 IU/LSGPT/ALT 26.0 IU/LALK PHOS 98.0 IU/LTOTAL PROTEIN 7.30 g/dLALBUMIN 4.20 g/dLTOTAL BILI 0.40 mg/dLCALCIUM 10.30 mg/dLAGE 53 GFR NonAA 75 GFR AA 91 eGFR >60 mL/mineGFR AA* >60 03/31/2011 9:00 AM GLUCOSE 130.0 mg/dLSODIUM 139.0 [...] mg/dLMICROALBUMIN UR <0.5 ug/mLVITAMIN B12 485.0 pg/mL History Of Immunizations Name Date Admin Mfg Name Mfg Code Trade Name Lot# Route Inj Vis Given Vis Pub CVX Tdap 09/19/2011 [employer] SKB ADACEL [id number] Intramuscular Right Deltoid 09/19/2011 03/18/2008 115 Influenza 04/03/2015 Not Entered NE Afluria Not Entered Not Entered 05/01/201605/01/2016 141 Influenza 01/22/2016 Not Entered NE Afluria Not Entered Not Entered 05/01/201605/01/2016 141 History of Past Illness Name Date [...] of right shoulder May 17 2016 9:41AM Payers Insurance Name Company Name Plan Name Plan Number Policy Number Policy Group Number Start Date Medicare RHC Medicare RHC [id number] N/A Medicare Part B Medicare Of [place] [id number] Tuesday, 2007 Medicare Part A Medicare Part A [id number] Tuesday, 2007 Medicare Part A Medicare - Lab/Xray [id number] Tuesday, May 01, 2007 History of Encounters Visit Date Visit Type Provider 05/17/2016 Office visit Omar Hopkins DO 03/01/2016 Office visit Omar Hopkins DO 02/23/2015 Office visit Omar Balderaste DO 01/12/2015 Office visit Omar Hopkins DO 11/27/2013 Office visit Omar Hopkins DO 04/16/2013 Office visit Omar Balderaste DO 01/14/2013 Office visit Omar Hopkins DO 12/12/2012 Office visit Omar Hopkins DO 09/20/2012 Office visit Tricia Austin APRN 04/18/2012 Office visit Omar Hopkins DO 02/06/2012 Office visit Omar Balderaste DO 09/19/2011 Office visit Omar Hopkins DO 04/07/2011 Office visit Omar Hopkins DO 04/19/2010 Office visit Omar Hopkins DO 04/20/2009 Office visit Omar Balderaste DO 12/25/2008 Office visit Omar Hopkins DO
--- OUTSIDE RECORDS SUMMARY | 2018-06-11 16:22 | XMS REPORT ---
Author Author Omar Hopkins [facility] Address [address] [place], [place] [address] Care Team Providers Care Chair Caner Name Role Phone Omar Hopkins PCP Unavailable Allergies and Adverse Reactions Name Reaction Notes NO KNOWN DRUG ALLERGIES Plan of Treatment Planned Activity Comments Planned Date Planned Time Plan/Goal X-RAY EXAM OF KNEE 3 02/23/2015 12:00 AM Medications Active Name Start Date Estimated Completion [...] ONCE DAILY cyclobenzaprine 10 mg oral tablet 02/23/2015 take 1 tablet (10 mg) by oral route 3 times per day prednisone 20 mg oral tablet 02/23/2015 take 3 tablets (60 mg) by oral route once daily for 3 days then 2 tablets (40 mg) daily for 2 days Name Start Date Expiration Date SIG [...] 12:00 AM X-RAY EXAM OF HIP Reviewed 03/30/2011 12:00 AM COMPREHEN METABOLIC PANEL [...] BILI 0.40 mg/dLCALCIUM 10.20 mg/dLeGFR >60 mL/min/1.73 [id number] 227.0 mg/dLCHOLESTEROL 282.0 mg/dLHDL 45.0 mg/dLLDL (CALC) [...] Vis Given Vis Pub CVX Tdap 09/19/2011 [email or web address] SKB ADACEL [id number] Intramuscular Right Deltoid 09/19/2011 03/18/2008 115 History [...] Date Medicare Part A Medicare Part A [id number] Tuesday, 2007 Medicare Part B Medicare Of [place] [id number] Tuesday, 2007 History of Encounters Visit Date [...]
--- OUTSIDE RECORDS SUMMARY | 2018-06-11 16:22 | XMS REPORT ---
Author Author Omar Hopkins [facility] Address [address] [place], [place] [address] Care Team Providers Care Liner Inserter Name Role Phone Omar Hopkins PCP Unavailable Allergies and Adverse Reactions Name Reaction Notes NO KNOWN DRUG ALLERGIES Plan of Treatment Planned Activity Comments Planned Date Planned Time Plan/Goal COMPREHEN METABOLIC PANEL 02/18/2016 12:00 AM LIPID PANEL 02/18/2016 12:00 AM GLYCOSYLATED HEMOGLOBIN TEST 02/18/2016 12:00 AM MICROALBUMIN QUANTITATIVE 02/18/2016 12:00 AM VITAMIN B-12 02/18/2016 12:00 AM Medications Active Name Start Date [...] by oral route 3 times per day valsartan-hydrochlorothiazide 160-12.5 mg oral tablet 05/31/2015 TAKE [...] BILI 0.40 mg/dLCALCIUM 10.20 mg/dLeGFR >60 mL/min/1.73 [id number] 227.0 mg/dLCHOLESTEROL 282.0 mg/dLHDL 45.0 mg/dLLDL (CALC) [...] Vis Given Vis Pub CVX Tdap 09/19/2011 [employer] SKB ADACEL [id number] Intramuscular Right Deltoid 09/19/2011 03/18/2008 115 Influenza [...] 2016 9:16AM Hyperlipidemia Feb 18 2016 9:16AM Payers Insurance Name Company Name Plan Name Plan Number Policy Number Policy Group Number Start Date Medicare Part A Medicare Part A [id number] Tuesday, 2007 Medicare Part A Medicare - Lab/Xray [id number] Tuesday, May 01, 2007 Medicare Part B Medicare Of [place] [id number] Tuesday, May 01, 2007 History of Encounters Visit Date Visit Type Provider 02/23/2015 Office visit Omar Hopkins DO 01/12/2015 Office visit Omar Hopkins DO 11/27/2013 Office visit Omar Hopkins DO 04/16/2013 Office visit Omar Hopkins DO 01/14/2013 Office visit Omar Hopkins DO 12/12/2012 Office visit Omar Hopkins DO 09/20/2012 Office visit Tricia Austin TRAIN DISPATCHER 04/18/2012 Office visit Omar Hopkins DO 02/06/2012 Office visit Omar Hopkins DO 09/19/2011 Office visit Omar Hopkins DO 04/07/2011 Office visit Omar Hopkins DO 04/19/2010 Office visit Omar Hopkins DO 04/20/2009 Office visit Omar Hopkins DO 12/25/2008 Office visit Omar Hopkins DO
--- OUTSIDE RECORDS SUMMARY | 2018-06-11 16:23 | XMS REPORT ---
Author Author Omar Hopkins [facility] Address [address] [place], [place] [address] Care Team Providers Care Dry Cell And Battery Assembler Name Role Phone Omar Hopkins PCP Unavailable [...] AM RADEX SHOULDER COMPLETE MINIMUM 2 VIEWS Returned 05/17/2016 12:00 AM RADEX HUMERUS MINIMUM 2 VIEWS Returned 05/17/2016 12:00 AM Decadron 8mg Injection Reviewed [...] Pub CVX Tdap 09/19/2011 [employer] SKB ADACEL [id number] Intramuscular Right Deltoid 09/19/2011 03/18/2008 115 Influenza [...] Number Start Date Medicare RHC Medicare RHC [id number] N/A Medicare Part B Medicare Of [place] [id number] Tuesday, 2007 Medicare Part A Medicare Part A [id number] Tuesday, 2007 Medicare Part A Medicare - Lab/Xray [id number] Tuesday, May 01, 2007 History of Encounters [...]
--- OUTSIDE RECORDS SUMMARY | 2018-06-11 16:23 | XMS REPORT ---
Author Author Omar Hopkins [facility] Address [address] [place], [place] [id number] Care Team Providers Care Dental Amalgam Processor Name Role Phone Omar Hopkins PCP Unavailable [...] TABLET BY MOUTH ONCE DAILY AT BEDTIME Augmentin 500-125 mg oral tablet 01/12/2015 01/19/2015 take 1 tablet by oral route every 12 hours for 7 days Name Start Date Expiration Date SIG [...] BY MOUTH EVERY DAY IN THE EVENING Discontinued Name Start Date Discontinued Date SIG [...] HC BMI BSA BMI Percentile O2 Sat(%) 01/12/2015 9:50:00 AM 132 mmHg 88 mmHg [...] of Procedures Date Ordered Description Order Status 03/30/2011 12:00 AM COMPREHEN METABOLIC PANEL Reviewed [...] mg/dLTRIGLYCERIDES 252.0 mg/dLHDL 51.0 mg/ dLCHOLESTEROL 258 mg/dLGLYCOHEMOGLOBIN A1C 6.3 GLYCOHEMOGLOBIN A1C 6.3 GLUCOSE 116 SODIUM 144.0 mmol/LPOTASSIUM 4.80 mmol/LCHLORIDE 105.0 mmol/LCO2 24.0 mmol/ LBUN 18.0 mg/dLCREATININE 0.80 mg/dLSGOT/AST 23.0 IU/LSGPT/ALT 26.0 IU/LALK PHOS 98.0 IU/LTOTAL PROTEIN 7.30 g/dLALBUMIN 4.20 g/dLTOTAL BILI 0.40 mg/ dLCALCIUM 10.30 mg/dLeGFR >60 mL/minGLUCOSE 116 SODIUM 144.0 mmol/LPOTASSIUM 4.80 mmol/LCHLORIDE 105.0 mmol/LCO2 24.0 mmol/LBUN 18.0 mg/dLCREATININE 0.80 mg/ dLSGOT/AST 23.0 IU/LSGPT/ALT 26.0 IU/LALK PHOS 98.0 IU/LTOTAL PROTEIN 7.30 g/ dLALBUMIN 4.20 g/dLTOTAL BILI 0.40 mg/dLCALCIUM 10.30 mg/dLeGFR >60 mL/min 03/31/2011 9:00 AM GLUCOSE 130.0 mg/dLSODIUM 139.0 mmol/LPOTASSIUM 4.40 mmol/ LCHLORIDE 104.0 mmol/LCO2 26.0 mmol/LBUN 21.0 mg/dLCREATININE 0.80 mg/dLSGOT/ AST 19.0 IU/LSGPT/ALT 25.0 IU/LALK PHOS 108.0 IU/LTOTAL PROTEIN 7.10 g/ dLALBUMIN 4.20 g/dLTOTAL BILI 0.40 mg/dLCALCIUM 10.20 mg/dLeGFR >60 mL/min/1.73 [id number] 227.0 mg/dLCHOLESTEROL 282.0 mg/dLHDL 45.0 mg/dLLDL (CALC) 192.0 mg/dLGLYCOHEMOGLOBIN A1C 6.10 % 05/09/2011 9:42 AM GLUCOSE 131.0 mg/dL 04/10/2012 10:02 AM GLUCOSE 150.0 mg/dLSODIUM 140.0 mmol/LPOTASSIUM 4.60 mmol/ LCHLORIDE 104.0 mmol/LCO2 25.0 mmol/LBUN 21.0 mg/dLCREATININE 0.90 mg/dLSGOT/ AST 19.0 IU/LSGPT/ALT 26.0 IU/LALK PHOS 99.0 IU/LTOTAL PROTEIN 7.10 g/dLALBUMIN 4.20 g/dLTOTAL BILI 0.50 mg/dLCALCIUM 10.80 mg/dLeGFR 60 TRIGLYCERIDES 210.0 mg/ dLCHOLESTEROL 241.0 mg/dLHDL 48.0 mg/dLLDL (CALC) 151.0 mg/dLGLYCOHEMOGLOBIN A1C 6.30 % 04/18/2012 [...] A1C 6.80 %Est Avg Glucose 148.5 mg/dL History Of Immunizations Name Date Admin Mfg Name Mfg Code Trade Name Lot# Route Inj Vis Given Vis Pub CVX Tdap 09/19/2011 [employer] SKB ADACEL [id number] Intramuscular Right Deltoid 09/19/2011 03/18/2008 115 History [...] 9:52AM Bronchitis, Acute Jan 12 2015 9:52AM Payers Insurance Name Company Name Plan Name Plan Number Policy Number Policy Group Number Start Date Medicare Part A Medicare Part A [id number] Tuesday, 2007 Medicare Part B Medicare Of [place] [id number] Tuesday, 2007 History of Encounters Visit Date Visit Type Provider 01/12/2015 Office visit Omar Hopkins DO 11/27/2013 [...]
[2018-06-11] MEDS ORDERED: NS IV 1000 ML 1,000 ML IV SCH (16:24)
--- OUTSIDE RECORDS SUMMARY | 2018-06-11 16:24 | XMS REPORT ---
Author Author Omar Hopkins [facility] Address [address] [place], [place] [id number] Care Team Providers Care Senior Air Director Name Role Phone Omar Hopkins PCP Unavailable [...] BILI 0.40 mg/dLCALCIUM 10.20 mg/dLeGFR >60 mL/min/1.73 [id number] 227.0 mg/dLCHOLESTEROL 282.0 mg/dLHDL 45.0 mg/dLLDL (CALC) [...] Vis Given Vis Pub CVX Tdap 09/19/2011 [employer] SKB ADACEL [id number] Intramuscular Right Deltoid 09/19/2011 03/18/2008 115 History [...] Date Medicare Part A Medicare Part A [id number] Tuesday, 2007 Medicare Part B Medicare [place] [id number] Tuesday, 2007 History of Encounters Visit Date [...]
--- OUTSIDE RECORDS SUMMARY | 2018-06-11 16:25 | XMS REPORT ---
Author Author Omar Hopkins [facility] Address [address] [place], [place] [id number] Care Team Providers Care Biofuels Production Manager Name Role Phone Omar Hopkins PCP Omar Hopkins PreferredProvider Allergies and Adverse Reactions Name Reaction Notes NO KNOWN DRUG ALLERGIES Plan of Treatment Planned Activity Comments Planned Date Planned Time Plan/Goal CBC W/ AUTO DIFF (RFLX MAN DIFF IF IND). 07/17/2017 12:00 AM CMP 07/17/2017 12:00 AM LIPID PANEL 07/17/2017 12:00 AM HEMOGLOBIN A1C 07/17/2017 12:00 AM Discuss Bariatric Surgery options. She needs to [...] ONCE DAILY amlodipine 10 mg oral tablet 02/05/2017 08/04/2017 TAKE ONE TABLET BY MOUTH ONCE DAILY cyclobenzaprine 10 mg oral tablet 02/09/2017 take 1 tablet (10 mg) by oral [...] to exceed 30 mL in 24 hours Problem List Description Status Onset Arthritis unspecified Active Hyperlipidemia Active Hypertension Active Vital Signs Date Time BP-Sys(mm[Hg] BP-Jany(mm[Hg]) HR(bpm) RR(rpm) Temp WT HT HC BMI BSA BMI Percentile O2 Sat(%) 02/09/2017 8:06:00 AM 144 mmHg 82 mmHg [...] Pub CVX Tdap 09/19/2011 [employer] SKB ADACEL [id number] Intramuscular Right Deltoid 09/19/2011 03/18/2008 115 Influenza 04/03/2015 Not Entered NE Afluria Not Entered Not Entered 05/01/201705/01/2017 141 Influenza 01/22/2016 Not Entered NE Afluria Not Entered Not Entered 05/01/201705/01/2017 141 History [...] of diabetes mellitus Jul 17 2017 10:08AM Payers Insurance Name Company Name Plan Name Plan Number Policy Number Policy Group Number Start Date Medicare RHC Medicare RHC [id number] Tuesday, 2007 Medicare Part B Medicare [place] [id number] Tuesday, 2007 Medicare Part A Medicare Part A [id number] Tuesday, 2007 Medicare Part A Medicare - Lab/Xray [id number] Tuesday, May 01, 2007 History of Encounters Visit Date Visit Type Provider 02/09/2017 Office visit Omar Hopkins DO 07/25/2016 Office visit Omar Hopkins DO 05/17/2016 Office visit Omar Hopkins DO 03/01/2016 Office visit Omar Hopkins DO 02/23/2015 Office visit Omar Hopkins DO 01/12/2015 Office visit Omar Hopkins DO 11/27/2013 Office visit Omar Hopkins DO 04/16/2013 Office visit Omar Kellie DO 01/14/2013 Office visit Omar Balderaste DO 12/12/2012 Office visit Omar Hopkins DO 09/20/2012 Office visit Tricia Austin APRN 04/18/2012 Office visit Omar Hopkins DO 02/06/2012 Office visit Omar Hopkins DO 09/19/2011 Office visit Omar Hopkins DO 04/07/2011 Office visit Omar Hopkins DO 04/19/2010 Office visit Omar Hopkins DO 04/20/2009 Office visit Omar Balderaste DO 12/25/2008 Office visit Omar Hopkins DO
--- OUTSIDE RECORDS SUMMARY | 2018-06-11 16:25 | XMS REPORT ---
Author Author Omar Hopkins [facility] Address [address] [place], [place] [id number] Care Team Providers Care Rate Reviewer Name Role Phone Omar Hopkins PCP Unavailable [...] BILI 0.40 mg/dLCALCIUM 10.20 mg/dLeGFR >60 mL/min/1.73 [id number] 227.0 mg/dLCHOLESTEROL 282.0 mg/dLHDL 45.0 mg/dLLDL (CALC) [...] Vis Given Vis Pub CVX Tdap 09/19/2011 [employer] SKB ADACEL [id number] Intramuscular Right Deltoid 09/19/2011 03/18/2008 115 History [...] Date Medicare Part A Medicare Part A [id number] Tuesday, 2007 Medicare Part B [place] [id number] Tuesday, 2007 History of Encounters Visit Date [...]
--- OUTSIDE RECORDS SUMMARY | 2018-06-11 16:26 | XMS REPORT ---
Author Author Omar Hopkins [facility] Address [address] [place], [place] [phone] Care Team Providers Care User Support Analyst Name Role Phone Omar Hopkins PCP Omar [...] Pub CVX Tdap 09/19/2011 [employer] SKB ADACEL [id number] Intramuscular Right Deltoid 09/19/2011 03/18/2008 115 Influenza [...] Number Start Date Medicare RHC Medicare RHC [id number] Tuesday, 2007 Medicare Part B Medicare [place] [id number] Tuesday, 2007 Medicare Part A Medicare Part A [id number] Tuesday, 2007 Medicare Part A Medicare - Lab/Xray [id number] Tuesday, May 01, 2007 History of Encounters [...]
--- OUTSIDE RECORDS SUMMARY | 2018-06-11 16:27 | XMS REPORT ---
Author Author Omar Hopkins [facility] Address [address] [place], [place] [address] Care Team Providers Care Interlibrary Loan Specialist Name Role Phone Omar Hopkins PCP Unavailable [...] ONCE DAILY cyclobenzaprine 10 mg oral tablet 2016 take 1 tablet (10 mg) by oral route at bedtime promethazine-codeine 6.25-10 mg/5 mL oral syrup 07/25/2016 take 5 milliliters by oral route every 6 hours as needed, not to exceed 30 mL in 24 hours Name Start Date Expiration Date SIG Comments [...] 2 times per day for 7 days Discontinued Name Start Date [...] HC BMI BSA BMI Percentile O2 Sat(%) 07/25/2016 9:55:00 AM 127 mmHg 72 mmHg 76 bpm 22 rpm 98.1 F 393.5 lbs 63 in 69.70 kg/m2 2.82 m2 97 % 05/17/2016 9:36:00 AM 132 mmHg 72 mmHg 76 bpm 20 rpm 97.2 F 396.25 lbs 64 in 68.0155 kg/m 2.8489 m 97 % 03/01/2016 7:58:00 AM 136 mmHg [...] Vis Given Vis Pub CVX Tdap 09/19/2011 [employer] SKB ADACEL [id number] Intramuscular Right Deltoid 09/19/2011 03/18/2008 115 Influenza [...] non-recurrent maxillary sinusitis Jul 25 2016 9:57AM Payers Insurance Name Company Name Plan Name Plan Number Policy Number Policy Group Number Start Date Medicare [facility] Medicare [facility] [id number] N/A Medicare Part B Medicare [place] [id number] Tuesday, 2007 Medicare Part A Medicare Part A [id number] Tuesday, 2007 Medicare Part A Medicare - Lab/Xray [id number] Tuesday, May 01, 2007 History of Encounters Visit Date Visit Type Provider 07/25/2016 Office visit Omar Hopkins DO 05/17/2016 Office visit Omar Hopkins DO 03/01/2016 Office visit Omar Hopkins DO 02/23/2015 Office visit Omar Hopkins DO 01/12/2015 Office visit Omar Hopkins DO 11/27/2013 Office visit Omar Hopkins DO 04/16/2013 Office visit Omar Hopkins DO 01/14/2013 Office visit Omar Hopkins DO 12/12/2012 Office visit Omar Hopkins DO 09/20/2012 Office visit Tircia Austin APRN 04/18/2012 Office visit Omar Hopkins DO 02/06/2012 Office visit Omar Hopkins DO 09/19/2011 Office visit Omar Hopkins DO 04/07/2011 Office visit Omar Hopkins DO 04/19/2010 Office visit Omar Hopkins DO 04/20/2009 Office visit Omar Hopkins DO 12/25/2008 Office visit Omar Hopkins DO
--- OUTSIDE RECORDS SUMMARY | 2018-06-11 16:27 | XMS REPORT ---
Author Author Omar Hopkins [facility] Address [address] [place], [place] [address] Care Team Providers Care Sluice Tender Name Role Phone Omar Hopkins PCP Unavailable [...] BILI 0.40 mg/dLCALCIUM 10.20 mg/dLeGFR >60 mL/min/1.73 [id number] 227.0 mg/dLCHOLESTEROL 282.0 mg/dLHDL 45.0 mg/dLLDL (CALC) [...] Vis Given Vis Pub CVX Tdap 09/19/2011 [employer] SKB ADACEL [id number] Intramuscular Right Deltoid 09/19/2011 03/18/2008 115 History [...] Date Medicare Part A Medicare Part A [id number] Tuesday, 2007 Medicare Part B Medicare [place] [id number] Tuesday, 2007 History of Encounters Visit Date [...]
--- OUTSIDE RECORDS SUMMARY | 2018-06-11 16:28 | XMS REPORT ---
Author Author Omar Hopkins [facility] Address [address] [place], [place] [phone] Care Team Providers Care Careers Counsellor Name Role Phone Omar Hopkins PCP Omar [...] Vis Given Vis Pub CVX Tdap 09/19/2011 [employer] SKB ADACEL [id number] Intramuscular Right Deltoid 09/19/2011 03/18/2008 115 Influenza [...] Number Start Date Medicare RHC Medicare RHC [id number] Tuesday, 2007 Medicare Part B Medicare [place] [id number] Tuesday, 2007 Medicare Part A Medicare Part A [id number] Tuesday, 2007 Medicare Part A Medicare - Lab/Xray [id number] Tuesday, May 01, 2007 History of Encounters [...] Hopkins DO 09/20/2012 Office visit Tricia Austin CHEMICAL PROCESS ANALYST 04/18/2012 Office visit Omar Hopkins DO 02/06/2012 Office visit Omar Hopkins DO 09/19/2011 Office visit Omar Hopkins DO 04/07/2011 Office visit Omar Hopkins DO 04/19/2010 Office visit Omar Balderaste DO 04/20/2009 Office visit Omar Kellie DO 12/25/2008 Office visit Omar Hopkins DO
--- OUTSIDE RECORDS SUMMARY | 2018-06-11 16:29 | XMS REPORT ---
Author Author Omar Hopkins [facility] Address [address] [place], [place] [address] Care Team Providers Care Retail Coordinator Name Role Phone Omar Hopkins PCP Unavailable [...] ONCE DAILY valsartan-hydrochlorothiazide 160-12.5 mg oral tablet 11/20/2016 TAKE ONE TABLET BY MOUTH ONCE DAILY [...] Pub CVX Tdap 09/19/2011 [employer] SKB ADACEL [id number] Intramuscular Right Deltoid 09/19/2011 03/18/2008 115 Influenza [...] 2017 8:08AM Hypertension Feb 09 2017 8:08AM Payers Insurance Name Company Name Plan Name Plan Number Policy Number Policy Group Number Start Date Medicare RHC Medicare RHC [id number] Tuesday, 2007 Medicare Part B Medicare [place] [id number] Tuesday, 2007 Medicare Part A Medicare Part A [id number] Tuesday, 2007 Medicare Part A Medicare - Lab/Xray [id number] Tuesday, May 01, 2007 History of Encounters Visit Date Visit Type Provider 02/09/2017 Office visit Omar Hopkins DO 07/25/2016 Office visit Omar Hopkins DO 05/17/2016 Office visit Omar Hopkins DO 03/01/2016 Office visit Omar Balderaste DO 02/23/2015 Office visit Omar Balderaste DO 01/12/2015 Office visit Omar Balderaste DO 11/27/2013 Office visit Omar Hopkins DO 04/16/2013 Office visit Omar Balderaste DO 01/14/2013 Office visit Omar Balderaste DO 12/12/2012 Office visit Omar Balderaste DO 09/20/2012 Office visit Tricia Austin APRN 04/18/2012 Office visit Omar Hopkins DO 02/06/2012 Office visit Omar Balderaste DO 09/19/2011 Office visit Omar Hopkins DO 04/07/2011 Office visit Omar Hopkins DO 04/19/2010 Office visit Omar Hopkins DO 04/20/2009 Office visit Omar Kellie DO 12/25/2008 Office visit Omar Balderaste DO
--- OUTSIDE RECORDS SUMMARY | 2018-06-11 16:29 | XMS REPORT | Continuity of Care Document ---
Author Author [facility] Organization [facility] Address Unknown Phone Unavailable Allergies Active Description Code Type Severity Reaction Onset Reported/Identified Relationship to Patient Clinical Status Yes No Known Allergies [id number] N /A N/A Medications There is no data. Problems There is no data. Procedures There is no data. Results There is no data. Encounters ACCT No. Visit Date/Time Discharge Status Pt. Type Provider Facility Loc./Unit Complaint [id number] 08/07/2017 08:54:46 08/07/2017 23:59:59 Omar Mancini [id number] 02/09/2017 08:59:55 02/09/2017 23:59:59 Omar Mancini [id number] 07/25/2016 10:42:27 07/25/2016 23:59:59 [facility] Outpatient Omar Hopkins [id number] 05/17/2016 10:03:10 05/17/2016 23:59:59 [facility] Outpatient Omar Hopkins [id number] 03/01/2016 08:50:38 03/01/2016 23:59:59 [facility] Outpatient Omar Hopkins [id number] 02/23/2015 09:23:33 02/23/2015 23:59:59 Omar Mancini [id number] 01/12/2015 10:44:50 01/12/2015 23:59:59 [facility] Outpatient Omar Hopkins [id number] 11/27/2013 11:01:48 11/27/2013 23:59:59 Omar Mancini [id number] 07/22/2017 12:52:16 Document Registration
[2018-06-11] MEDS ORDERED: KETOROLAC 30 MG/ML VIAL IVP ONE (16:30)
--- NOTE | 2018-06-11 16:34 | ED Abdominal Pain ---
General Chief Complaint: Abdominal/GI Problems Stated Complaint: RT SIDE PAIN,NAUSEA,VOMITTING Nursing Triage Note: PT REPORTS ABDOMINAL PAIN THAT HAS BEEN DULL FOR THE LAST WEEK BUT IS NOW SHARP. PT WENT TO URGENT CARE AND HAD KUB AT HOSPITAL. WHEN LEAVING PT BEGAN VOMITING FROM THE SEVERE PAIN. Sepsis Screen: No Definite Risk Source of Information: Patient, Family Exam Limitations: No Limitations History of Present Illness Date Seen by Provider: Jun 11, 2018 Time Seen by Provider: 16:18 Initial Comments Patient presents to ER by private conveyance with chief complaint that she has been having some dull achy abdominal pain in her right lower quadrant for the past 5 days. It has been pretty consistent but progressively getting worse to where today after she went to urgent care they got a urinalysis which was normal and Center for a x-ray of the abdomen. While she was getting up and off the table she felt a sharp pain in her right lower quadrant which nearly made her fall. She's occasionally had some nausea but no rash right now. No fevers chills cough or other prodromal syndromes. She's had her gallbladder out surgically but no other surgeries. She has not taken anything for the pain. She has not seen anybody for the nausea or symptoms in the last week. She does have a history of chronic constipation and uses Colace couple times a day to stay regular. Her last bowel movement was yesterday and she did not have to strain. Allergies and Home Medications Allergies Coded Allergies: No Known Drug Allergies (Unverified , 06/11/18) Patient Home Medication List Home Medication List Reviewed: Yes Review of Systems Review of Systems Constitutional: No chills, No fever EENTM: No Blurred Vision, No Double Vision Respiratory: Denies Cough, Denies Shortness of Air, Denies Wheezing Cardiovascular: Denies Chest Pain; Edema (chronic) Gastrointestinal: See HPI; Denies Abdomen Distended; Abdominal Pain, Constipated; Denies Diarrhea; Nausea; Denies Vomiting Genitourinary: Denies Burning, Denies Discharge Musculoskeletal: No back pain, No joint pain Skin: No pruritus, No rash Past Pvwtbxv-Yfujsv-Zuaynf Hx Patient Social History Alcohol Use: Denies Use Recreational Drug Use: No Smoking Status: Never a Smoker Recent Foreign Travel: No Contact w/Someone Who Travel: No Recent Infectious Disease Expo: No Recent Hopitalizations: No Seasonal Allergies Seasonal Allergies: No Past Medical History Surgeries: Yes Gallbladder Respiratory: No Cardiac: Yes High Cholesterol, Hypertension Neurological: No Genitourinary: No Gastrointestinal: No Musculoskeletal: No Endocrine: No HEENT: Yes Glaucoma Cancer: No Psychosocial: No Integumentary: No Blood Disorders: No Physical Exam Vital Signs Vital Signs - First Documented 06/11/18 16:10 Temp 96.0 Pulse 56 Resp 16 B/P (MAP) 142/65 (90) Pulse Ox 94 Capillary Refill : Less Than 3 Seconds Height/Weight/BMI Height: 5'3.00" Weight: 334lbs. oz. 151.311117jq; BMI Method:Stated General Appearance: WD/WN, obese (morbidly) HEENT: PERRL/EOMI, TMs normal, pharynx normal Neck: non-tender, normal inspection Respiratory: chest non-tender, lungs clear, normal breath sounds, no respiratory distress, no accessory muscle use Cardiovascular: normal peripheral pulses, regular rate, rhythm, other (chronic bilateral lower extremity edema) Peripheral Pulses: 2+ Radial Pulses (R), 2+ Radial Pulses (L) Gastrointestinal: soft, no organomegaly, abnormal bowel sounds (in audible or decreased), tenderness (over McBurney's point but no rebound tenderness or other mesenteric signs. Difficult to do a good examination secondary to body habitus) Extremities: normal range of motion, normal inspection, normal capillary refill Neurologic/Psychiatric: normal mood/affect, oriented x 3, other (somnolent, GCS 14) Skin: normal color, warm/dry Progress/Results/Core Measures Results/Orders Lab Results Laboratory Tests Test 06/11/18 16:20 06/11/18 17:47 Range/Units White Blood Count 8.8 4.3-11.0 10^3/uL Red Blood Count 4.36 4.35-5.85 10^6/uL Hemoglobin 13.2 11.5-16.0 G/DL Hematocrit 39 35-52 % Mean Corpuscular Volume 90 80-99 FL Mean Corpuscular Hemoglobin 30 25-34 PG Mean Corpuscular Hemoglobin Concent 34 32-36 G/DL Red Cell Distribution Width 13.0 10.0-14.5 % Platelet Count 359 130-400 10^3/uL Mean Platelet Volume 10.1 7.4-10.4 FL Neutrophils (%) (Auto) 62 42-75 % Lymphocytes (%) (Auto) 28 12-44 % Monocytes (%) (Auto) 7 0-12 % Eosinophils (%) (Auto) 2 0-10 % Basophils (%) (Auto) 0 0-10 % Neutrophils # (Auto) 5.5 1.8-7.8 X 10^3 Lymphocytes # (Auto) 2.5 1.0-4.0 X 10^3 Monocytes # (Auto) 0.6 0.0-1.0 X 10^3 Eosinophils # (Auto) 0.2 0.0-0.3 10^3/uL Basophils # (Auto) 0.0 0.0-0.1 10^3/uL Sodium Level 140 135-145 MMOL/L Potassium Level 4.1 3.6-5.0 MMOL/L Chloride Level 106 98-107 MMOL/L Carbon Dioxide Level 22 21-32 MMOL/L Anion Gap 12 5-14 MMOL/L Blood Urea Nitrogen 31 H 7-18 MG/DL Creatinine 1.18 0.60-1.30 MG/DL Estimat Glomerular Filtration Rate 46 BUN/Creatinine Ratio 26 Glucose Level 154 H 70-105 MG/DL Calcium Level 10.6 H 8.5-10.1 MG/DL Corrected Calcium 10.4 H 8.5-10.1 MG/DL Total Bilirubin 0.5 0.1-1.0 MG/DL Aspartate Amino Transf (AST/SGOT) 19 5-34 U/L Alanine Aminotransferase (ALT/SGPT) 22 0-55 U/L Alkaline Phosphatase 96 40-136 U/L C-Reactive Protein High Sensitivity 0.39 0.00-0.50 MG/DL Total Protein 7.1 6.4-8.2 GM/DL Albumin 4.2 3.2-4.5 GM/DL Urine Color YELLOW Urine Clarity CLEAR Urine pH 5 5-9 Urine Specific [place] 1.020 1.016-1.022 Urine Protein NEGATIVE NEGATIVE Urine Glucose (UA) NEGATIVE NEGATIVE Urine Ketones 1+ H NEGATIVE Urine Nitrite NEGATIVE NEGATIVE Urine Bilirubin NEGATIVE NEGATIVE Urine Urobilinogen NORMAL NORMAL MG/DL Urine Leukocyte Esterase NEGATIVE NEGATIVE Urine RBC (Auto) NEGATIVE NEGATIVE Urine RBC 0-2 /HPF Urine WBC 2-5 /HPF Urine Squamous Epithelial Cells 2-5 /HPF Urine Crystals NONE /LPF Urine Bacteria LARGE H /HPF Urine Casts NONE /LPF Urine Mucus NEGATIVE /LPF Urine Culture Indicated YES My Orders Orders - DERECK VALIENTE Ct Abdomen/Pelvis W (06/11/18 16:24) Cbc With Automated Diff (06/11/18 16:24) Comprehensive Metabolic Panel (06/11/18 16:24) Hs C Reactive Protein (06/11/18 16:24) Ua Culture If Indicated (06/11/18 16:24) Saline Lock/Iv-Start (06/11/18 16:24) Ns Iv 1000 Ml (Sodium Chloride 0.9%) (06/11/18 16:24) Ketorolac Injection (Toradol Injection) (06/11/18 16:30) Iohexol Injection (Omnipaque 350 Mg/Ml 1 (06/11/18 17:00) Contrast Received (Contrast Received) (06/11/18 17:00) Ns (Ivpb) (Sodium Chloride 0.9% Ivpb Bag (06/11/18 17:00) Urine Culture (06/11/18 17:47) Medications Given in ED Current Medications Medications Dose Ordered Sig/Huong Route Start Time Stop Time Status Last Admin Dose Admin Iohexol 100 ml ONCE ONCE IV 06/11/18 17:00 06/11/18 17:01 DC 06/11/18 17:02 100 ML Ketorolac Tromethamine 30 mg ONCE ONCE IVP 06/11/18 16:30 06/11/18 16:31 DC 06/11/18 16:38 30 MG Sodium Chloride 100 ml ONCE ONCE IV 06/11/18 17:00 06/11/18 17:01 DC 06/11/18 17:02 80 ML Vital Signs/I&O 06/11/18 16:10 Temp 96.0 Pulse 56 Resp 16 B/P (MAP) 142/65 (90) Pulse Ox 94 Blood Pressure Mean: 90 Progress Progress Note #1: Time: 16:35 Progress Note Patient has obesity hypoventilation syndrome appearance. Her oxygen sats did slip down into the low 90s as she slept but her heart rate stayed in the 50s to 60s range. Progress Note #2: Time: 18:18 Progress Note The patient's pain has significant decreased. She is still feeling poorly but having no nausea. Her urine, labs, CT are all unremarkable. I suggested some MiraLAX cleanout and follow-up with primary care later this week. Her family member will be able look in on her throughout the week. Diagnostic Imaging Diagonstic Imaging: Xray Plain Films/CT/US/NM/MRI: abdomen (kub) Comments No overt air-fluid levels or areas transition/obstruction. NAME: REJI RANGEL [facility] REC#: [id number] PHYSICIAN: RUTH MARQUEZ APRN CC: GAMA JUARES MD; RUTH MARQUEZ APRN Page 1 of 1 RADIOLOGY REPORT [facility], [place], [place] CC: AGMA JUARES MD; RUTH MARQUEZ APRN Page 1 of 1 RADIOLOGY REPORT NAME: REJI RANGEL [facility] REC#: [id number] PT STATUS: REG CLI : 1955 PHYSICIAN: RUTH MARQUEZ APRN ADMIT DATE: 06/11/18/RAD Signed Date of Exam: 06/11/18 ABDOMEN, FLAT & UPRIGHT/DECUB INDICATION: Right flank pain EXAM: Supine upright abdominal images FINDINGS: The gallbladder is surgically absent. Bowel gas pattern is normal. There are no pathologic masses or calcifications. IMPRESSION: No acute abnormalities are seen in the abdomen. Dictated by: Dictated on workstation # [id number] Dict: 06/11/18 1637 Trans: 06/11/18 164 Interpreted by: GAMA JUARES MD Electronically signed by: GAMA JUARES MD 06/11/18 164 Reviewed: Reviewed by Me Diagonstic Imaging: CT (with contrast) Plain Films/CT/US/NM/MRI: abdomen, pelvis Comments [facility] [place], [place] NAME: REJI RANGEL [facility] REC#: [id number] PT STATUS: REG ER : 1955 PHYSICIAN: DERECK VALIENTE MD ADMIT DATE: 06/11/18/ER Draft Date of Exam:06/11/18 CT ABDOMEN/PELVIS W PROCEDURE: CT abdomen and pelvis with contrast. TECHNIQUE: Multiple contiguous axial images were obtained through the abdomen and pelvis after administration of intravenous contrast. DATE: June 11, 2018. COMPARISON: Abdominal radiographs June 11, 2018. INDICATION: 62-year-old female, right lower quadrant abdominal pain and nausea. FINDINGS: The visualized portions of the lung bases are grossly clear. The heart is not enlarged. There is no identified pericardial effusion. The liver is normal in size and contour. There is no identified liver lesion. The main, right, and left portal veins are patent. The gallbladder is surgically absent. There is no intrahepatic or extrahepatic bile duct dilation. The main pancreatic duct is not abnormally dilated. There is fatty replacement of the pancreatic parenchyma. The spleen is not enlarged. There is a nonspecific low-attenuation lesion in the spleen on axial image 28 which measures 8 mm in size. The adrenal glands are unremarkable. Unremarkable appearance of the renal parenchyma. The urinary collecting systems are not distended. There is no identified renal or ureteral stone. The urinary bladder is under distended and grossly unremarkable in appearance. There is diverticulosis without evidence of acute diverticulitis. The intestinal tract is not distended. The appendix is best seen on axial image 79 and adjacent sequential images. The appendix is normal. There is no identified free intraperitoneal air. There is no focal fluid collection. There is no free pelvic fluid. There are atherosclerotic calcifications. There is no identified abnormally enlarged lymph node in the abdomen or pelvis which meets CT size criteria for adenopathy. There are arthritic changes of both hips. There are advanced multilevel degenerative changes of the spine. There is grade 1-2 anterolisthesis of L5 on S1 relating to bilateral L5 pars interarticularis defects. There is no identified acute bony abnormality. IMPRESSION: CT ABDOMEN AND PELVIS. 1. No evidence of acute appendicitis or other acute abnormality in the abdomen or pelvis. Dictated on workstation # [id number] Dict: 06/11/18 1724 Trans: 06/11/18 1734 [facility] [id number] Interpreted by: JENNY VALENCIA MD Electronically signed by: Reviewed: Reviewed by Me Departure Impression Primary Impression: Abdominal wall pain Additional Impressions: Constipation Qualified Codes: K59.01 - Slow transit constipation Nausea alone Disposition: HOME, SELF-CARE Condition: Stable Departure-Patient Inst. Decision time for Depature: 18:19 Referrals: CLAUDE ROCK DO (PCP/Family) Primary Care Physician Patient Instructions: Constipation, Adult (DC) Add. Discharge Instructions: Obtain some MiraLAX and use it once or twice a day to help move your bowels along. Follow up later this week with primary care. If you have nausea take Zofran 1 tablet every 6 hours as needed. If necessary can use an enema daily for one or 2 days in a row. If you have pain you can use Tylenol 1000 mg every 8 hours in addition to ibuprofen 800 mg every 8 hours and heating pads. If your pain becomes severe, intractable or you have intractable nausea with vomiting despite the medicines then you should follow-up sooner. All discharge instructions reviewed with patient and/or family. Voiced understanding. Scripts Ondansetron (Ondansetron Odt) 4 Mg Tab.rapdis 4 MG PO Q6H PRN for NAUSEA/VOMITING, #8 TAB 0 Refills Prov: DERECK VALIENTE 06/11/18 Copy Copies To 1: CLAUDE ROCK DO DERECK VALIENTE Jun 11, 2018 16:34
[2018-06-11 16:36] LABS: BASOPHILS % (AUTO) 0 % (0-10); EOSINOPHILS # (AUTO) 0.2 10^3/uL (0.0-0.3); EOSINOPHILS % (AUTO) 2 % (0-10); HEMATOCRIT 39 % (35-52); HEMOGLOBIN 13.2 G/DL (11.5-16.0); LYMPHOCYTES # (AUTO) 2.5 X 10^3 (1.0-4.0); LYMPHOCYTES % (AUTO) 28 % (12-44); MEAN CORPUSCULAR HEMOGLOBIN 30 PG (25-34); MEAN CORPUSCULAR HGB CONC 34 G/DL (32-36); MEAN CORPUSCULAR VOLUME 90 FL (80-99); MEAN PLATELET VOLUME 10.1 FL (7.4-10.4); MONOCYTES # (AUTO) 0.6 X 10^3 (0.0-1.0); MONOCYTES % (AUTO) 7 % (0-12); NEUTROPHILS # (AUTO) 5.5 X 10^3 (1.8-7.8); NEUTROPHILS % (AUTO) 62 % (42-75); PLATELET COUNT 359 10^3/uL (130-400); WHITE BLOOD COUNT 8.8 10^3/uL (4.3-11.0)
[2018-06-11 16:49] LABS: ALBUMIN 4.2 GM/DL (3.2-4.5); BILIRUBIN,TOTAL 0.5 MG/DL (0.1-1.0); CALCIUM 10.6 MG/DL (8.5-10.1); CREATININE SERUM 1.18 MG/DL (0.60-1.30); POTASSIUM 4.1 MMOL/L (3.6-5.0); TOTAL PROTEIN 7.1 GM/DL (6.4-8.2)
[2018-06-11] MEDS ORDERED: NS 100 ML (IVPB) BAG IV ONE (17:00)
[2018-06-11] MEDS ORDERED: IOHEXOL 350 MG/ML 100 ML (OMNIPAQUE 350) VIAL IV ONE (17:00)
[2018-06-11] MEDS ORDERED: RECEIVED CONTRAST (Hold Metformin) IV SCH (17:00)
--- NOTE | 2018-06-11 17:35 | Diagnostic Imaging Report ---
PROCEDURE: CT abdomen and pelvis with contrast. TECHNIQUE: Multiple contiguous axial images were obtained through the abdomen and pelvis after administration of intravenous contrast. DATE: June 11, 2018. COMPARISON: Abdominal radiographs June 11, 2018. INDICATION: 62-year-old female, right lower quadrant abdominal pain and nausea. FINDINGS: The visualized portions of the lung bases are grossly clear. The heart is not enlarged. There is no identified pericardial effusion. The liver is normal in size and contour. There is no identified liver lesion. The main, right, and left portal veins are patent. The gallbladder is surgically absent. There is no intrahepatic or extrahepatic bile duct dilation. The main pancreatic duct is not abnormally dilated. There is fatty replacement of the pancreatic parenchyma. The spleen is not enlarged. There is a nonspecific low-attenuation lesion in the spleen on axial image 28 which measures 8 mm in size. The adrenal glands are unremarkable. Unremarkable appearance of the renal parenchyma. The urinary collecting systems are not distended. There is no identified renal or ureteral stone. The urinary bladder is under distended and grossly unremarkable in appearance. There is diverticulosis without evidence of acute diverticulitis. The intestinal tract is not distended. The appendix is best seen on axial image 79 and adjacent sequential images. The appendix is normal. There is no identified free intraperitoneal air. There is no focal fluid collection. There is no free pelvic fluid. There are atherosclerotic calcifications. There is no identified abnormally enlarged lymph node in the abdomen or pelvis which meets CT size criteria for adenopathy. There are arthritic changes of both hips. There are advanced multilevel degenerative changes of the spine. There is grade 1-2 anterolisthesis of L5 on S1 relating to bilateral L5 pars interarticularis defects. There is no identified acute bony abnormality. IMPRESSION: CT ABDOMEN AND PELVIS. 1. No evidence of acute appendicitis or other acute abnormality in the abdomen or pelvis. Dictated by: Dictated on workstation # [id number]
[2018-06-11 17:54] LABS: BILIRUBIN,URINE NEGATIVE (NEGATIVE); CLARITY,URINE CLEAR; COLOR,URINE YELLOW; GLUCOSE, URINE (UA) NEGATIVE (NEGATIVE); KETONES,URINE 1+ (NEGATIVE); LEUKOCYTE ESTERASE ,URINE NEGATIVE (NEGATIVE); NITRITE,URINE NEGATIVE (NEGATIVE); PH,URINE 5 (5-9); PROTEIN,URINE NEGATIVE (NEGATIVE); UROBILINOGEN,URINE NORMAL (NORMAL)
[2018-06-11 18:03] LABS: BACTERIA,URINE LARGE /HPF; RBC,URINE 0-2 /HPF
[2018-06-11] MEDS ORDERED: ONDA4TAB11 PO (18:22)
[2018-06-11 18:40] VITALS: BP 142/65
== END 2018-06-11 18:40 | disposition home or self-care (01) ==
LOC: EDUNIT# 16:04 → ER 16:06
DX: K59.00 Constipation, unspecified (principal); R11.0 Nausea; E78.00 Pure hypercholesterolemia, unspecified; I10 Essential (primary) hypertension; Z90.89 Acquired absence of other organs; Z87.19 Personal history of other diseases of the digestive system
CPT/HCPCS: 36415; 74177; 80053; 81000; 85025; 86141; 87077; 87088; 87186

== ENCOUNTER → 2018-06-11 | Outpatient (CLI) | payer MEDICARE ==
[~2018-06-11] MED LIST: ONDA4TAB11 PO
--- NOTE | 2018-06-11 16:44 | Diagnostic Imaging Report ---
INDICATION: Right flank pain EXAM: Supine upright abdominal images FINDINGS: The gallbladder is surgically absent. Bowel gas pattern is normal. There are no pathologic masses or calcifications. IMPRESSION: No acute abnormalities are seen in the abdomen. Dictated by: Dictated on workstation # [id number]
== END ==
LOC: RAD 15:40
PROVIDERS: ATTEND Nurse Practitioner Family
DX: E78.49 Other hyperlipidemia (principal); R10.9 Unspecified abdominal pain; I10 Essential (primary) hypertension; M19.90 Unspecified osteoarthritis, unspecified site; H40.89 Other specified glaucoma; Z90.49 Acquired absence of other specified parts of digestive tract
CPT/HCPCS: 74019

== ENCOUNTER → 2018-12-16 | Outpatient (CLI) | payer MEDICARE ==
[2018-12-16 07:32] LABS: BASOPHILS % (AUTO) 0 % (0-10); EOSINOPHILS # (AUTO) 0.3 10^3/uL (0.0-0.3); EOSINOPHILS % (AUTO) 4 % (0-10); HEMATOCRIT 38 % (35-52); HEMOGLOBIN 12.8 G/DL (11.5-16.0); LYMPHOCYTES # (AUTO) 2.1 X 10^3 (1.0-4.0); LYMPHOCYTES % (AUTO) 27 % (12-44); MEAN CORPUSCULAR HEMOGLOBIN 30 PG (25-34); MEAN CORPUSCULAR HGB CONC 33 G/DL (32-36); MEAN CORPUSCULAR VOLUME 91 FL (80-99); MEAN PLATELET VOLUME 10.1 FL (7.4-10.4); MONOCYTES # (AUTO) 0.7 X 10^3 (0.0-1.0); MONOCYTES % (AUTO) 9 % (0-12); NEUTROPHILS # (AUTO) 4.8 X 10^3 (1.8-7.8); NEUTROPHILS % (AUTO) 61 % (42-75); PLATELET COUNT 273 10^3/uL (130-400); RED CELL DISTRIBUTION WIDTH 13.2 % (10.0-14.5); WHITE BLOOD COUNT 7.9 10^3/uL (4.3-11.0)
[2018-12-16 07:53] LABS: BILIRUBIN,TOTAL 0.5 MG/DL (0.1-1.0); CALCIUM 10.7 MG/DL (8.5-10.1); CREATININE SERUM 1.11 MG/DL (0.60-1.30); POTASSIUM 4.3 MMOL/L (3.6-5.0); TOTAL PROTEIN 7.2 GM/DL (6.4-8.2)
== END ==
LOC: LAB 07:13
PROVIDERS: ATTEND Nurse Practitioner Family
DX: E78.5 Hyperlipidemia, unspecified (principal); I10 Essential (primary) hypertension; R60.9 Edema, unspecified
CPT/HCPCS: 36415; 80053; 80061; 83036; 83970; 84439; 84443; 85025

== ENCOUNTER → 2018-12-17 | Outpatient (CLI) | payer MEDICARE | LOC: RAD 09:34 | PROVIDERS: ATTEND Nurse Practitioner Family | DX: R01.1 Cardiac murmur, unspecified (principal) | CPT/HCPCS: 93306 ==

== ENCOUNTER → 2019-01-23 | Outpatient (CLI) | payer MEDICARE ==
[~2019-01-23] MED LIST changes: +CATHETER FLUSH 10 ML SYR IV PRN; +REGADENOSON 0.4 MG/5 ML SYR (LEXISCAN) IV ONE
[2019-01-23 09:40] VITALS: BP 139/84
--- NOTE | 2019-01-23 19:42 | STRESS TEST ---
DATE OF SERVICE: 01/23/2019 LEXISCAN MYOVIEW STRESS TEST REPORT Baseline heart rate is 61, baseline blood pressure 170/90. Baseline EKG is sinus rhythm with no ischemic changes. In summary, the patient was injected with 10.94 mCi of technetium-99 Myoview and the resting images were obtained. Then, the patient received 0.4 mg of Lexiscan followed by 30.4 mCi of technetium-99 Myoview. Throughout the test, there were no EKG changes. The resting and stress images were reviewed and compared in the short axis, horizontal long axis, and vertical long axis views. Review of the images showed reversible ischemia involving the whole inferior wall and inferoseptum. SSS is 14. SDS 8, TID value 1.02. On the gated images, the left ventricle appeared to be normal size with normal contractility. Calculated ejection fraction 57%. CONCLUSION: 1. The patient tolerated Lexiscan well. 2. Reversible ischemia involving the whole inferior wall and inferolateral and inferoseptum. 3. Normal left ventricular size with normal contractility. Calculated ejection fraction %. Job ID: [id number] DocumentID: [id number] Dictated Date: 01/23/2019 13:28:26 Early Childhood Teacher Assistant Date: 01/23/2019 19:41:35 Dictated By: BRENDA SWANSON MD
== END ==
LOC: CARD 08:08
PROVIDERS: ATTEND Internal Medicine Cardiovascular Disease
DX: I25.89 Other forms of chronic ischemic heart disease (principal); E66.01 Morbid (severe) obesity due to excess calories; I11.9 Hypertensive heart disease without heart failure
CPT/HCPCS: 78452; 93017

== ENCOUNTER 2019-02-06 07:40 | Day surgery (SDC) | payer MEDICARE ==
[2019-02-06] VITALS (10 sets, daily range): BP systolic 125–145; BP diastolic 59–93
[~2019-02-06] VITALS: Ht 160 cm; Wt 160.0 kg
[~2019-02-06 07:40] MED LIST changes: -CATHETER FLUSH 10 ML SYR IV PRN; -REGADENOSON 0.4 MG/5 ML SYR (LEXISCAN) IV ONE
[2019-02-06] MEDS ORDERED: NS IV 1000 ML 1,000 ML IV SCH ×2 (07:54→10:53)
[2019-02-06] MEDS ORDERED: NS IV 1000 ML 1,000 ML ONE (08:02)
[2019-02-06] MEDS ORDERED: LIDOCAINE 1% INJ 20 ML 20 ML VIAL ONE (08:02)
[2019-02-06] MEDS ORDERED: HEParin (CATH LAB) 2,000 ML IV ONE (08:02)
[2019-02-06 08:21] LABS: HEMOGLOBIN 13.4 G/DL (11.5-16.0); MEAN PLATELET VOLUME 10.2 FL (7.4-10.4); RED CELL DISTRIBUTION WIDTH 13.1 % (10.0-14.5); WHITE BLOOD COUNT 9.1 10^3/uL (4.3-11.0)
[2019-02-06 08:24] LABS: BILIRUBIN,URINE NEGATIVE (NEGATIVE); CLARITY,URINE CLEAR; COLOR,URINE YELLOW; GLUCOSE, URINE (UA) NEGATIVE (NEGATIVE); KETONES,URINE NEGATIVE (NEGATIVE); LEUKOCYTE ESTERASE ,URINE NEGATIVE (NEGATIVE); NITRITE,URINE NEGATIVE (NEGATIVE); PH,URINE 6.5 (5-9); PROTEIN,URINE NEGATIVE (NEGATIVE); UROBILINOGEN,URINE NORMAL (NORMAL)
[2019-02-06 08:32] LABS: BACTERIA,URINE NEGATIVE /HPF; SQUAMOUS EPITHELIAL CELL,UR RARE /HPF
--- NOTE | 2019-02-06 08:40 | Diagnostic Imaging Report ---
INDICATION: Pre-heart catheterization. TIME OF EXAM: 8:24 AM No prior studies are available for comparison. FINDINGS: The heart appears to be mildly enlarged. Lungs are clear. Pulmonary vascularity is normal. No infiltrate, effusion or pneumothorax is seen. IMPRESSION: No acute cardiopulmonary process is detected. Dictated by: Dictated on workstation # [id number]
[2019-02-06 08:43] LABS: ALBUMIN 4.5 GM/DL (3.2-4.5); BILIRUBIN,TOTAL 0.6 MG/DL (0.1-1.0); CALCIUM 10.8 MG/DL (8.5-10.1); CREATININE SERUM 1.07 MG/DL (0.60-1.30); POTASSIUM 4.3 MMOL/L (3.6-5.0); TOTAL PROTEIN 7.8 GM/DL (6.4-8.2)
[2019-02-06] MEDS ORDERED: ACET-2650 PO (09:02)
[2019-02-06] MEDS ORDERED: SIMV20TA3 PO (09:02)
[2019-02-06] MEDS ORDERED: PUMP300C PO (09:02)
[2019-02-06] MEDS ORDERED: FEXO180T84 PO (09:02)
[2019-02-06] MEDS ORDERED: FLUT9.9S NS (09:02)
[2019-02-06] MEDS ORDERED: IRBE1TAB43 PO (09:02)
[2019-02-06] MEDS ORDERED: LATA2.5D5 OU (09:02)
[2019-02-06] MEDS ORDERED: ASPI-983 PO (09:02)
[2019-02-06] MEDS ORDERED: NAPR220T66 PO (09:02)
[2019-02-06] MEDS ORDERED: AMLO10TA7 PO (09:02)
[2019-02-06] MEDS ORDERED: TIMO5DRO5 OU (09:02)
[2019-02-06] MEDS ORDERED: LEVO25TA5 PO (09:02)
[2019-02-06] MEDS ORDERED: MULT-436 PO (09:08)
[2019-02-06] MEDS ORDERED: LINA72CA PO (09:08)
--- NOTE | 2019-02-06 09:13 | NUR ---
SPOKE WITH PT (SHE HAD HER BOTTLES) , CALLED FABRIZIO AND DR. GALLARDO TO COMPLETE THE MED REC. PT WAS ABLE TO TELL ME HOW/WHEN SHE TAKES ALL HER MEDS. THE FOLLOWING ARE FILL DATES FROM [facility]: 12-23-2018 SIMVASTATIN #90/90DS 01-02-2019 LATANOPROST 56DS 01-04-2019 TIMOLOL 01-09-2019 IRBESARTAN/HCTZ #30/30DS 01-17-2019 LEVOTHYROXINE #30/30DS 01-20-2019 AMLODIPINE #90/90DS LINZESS: ON 12-11-2018 ON A SAMPLE OF #[address] JUNG OFFICE. THE DIRECTIONS THEY HAVE IS 1 TAB DAILY- BUT PT SAYS SHE ONLY USES PRN. OTC MEDS: ACETAMINOPEH: 1 Q 6 H PRN ASPIRIN 81M HS FEXOFENADINE: 1 DAILY PRN FLONASE: UD PRN ONE DAILY COMPLETE: 1 DAILY NAPROXEN: 1 TAB Q 6 H PRN AZO BLADDER CONTOL: 1 DAILY
[2019-02-06] MEDS ORDERED: FLU QUADRIvalent (5+ YOA) 2019-2020 (AFLURIA) 0.5 ML IM ONE (09:15)
[2019-02-06] MEDS ORDERED: HEParin 1000 UNIT/ML (10ML VIAL) FOR BOLUS ONE (10:07)
[2019-02-06] MEDS ORDERED: VERAPAMIL 5 MG/2 ML (CALAN) VIAL IV ONE (10:07)
[2019-02-06] MEDS ORDERED: NITRO DRIP 25000 MCG/D5W 250 ML IV ONE (10:07)
[2019-02-06] MEDS ORDERED: MIDAZOLAM 2 MG/2 ML (VERSED) VIAL ONE (10:10)
[2019-02-06] MEDS ORDERED: fentaNYL INJECTION 100 MCG/2 ML AMP ONE (10:10)
--- NOTE | 2019-02-06 10:16 | Cardiac Procedure Note-CS/ASA ---
Pre-Procedure Note Pre-Op Procedure Note H&P Reviewed The H&P was reviewed, patient examined and no changes noted. Date H&P Reviewed: Feb 06, 2019 Time H&P Reviewed: 10:16 Conscious Sedation Pre-Proced Time 10:16 ASA Score 3 For ASA 3 and 4: Consider anesthesia and medical clearance. Also, for patients with a history of failed moderate sedation consider anesthesia. Airway Lungs Heart ASA score ASA 1: a normal healthy patient ASA 2: a patient with a mild systemic disease (mid diabetes, controlled hypertension, obesity x ASA 3: a patient with a severe systemic disease that limits activity (angina, COPD, prior Myocardial infarction) ASA 4: a patient with an incapacitating disease that is a constant threat to life (CHF, renal failure) ASA 5: a moribund patient not expected to survive 24 hrs. (ruptured aneurysm) ASA 6: a declared brain- patient whose organs are being harvested. For emergent operations, add the letter E after the classification Mallampati Classification Grade 3 Sedation Plan Analgesia, Amnesia, Plan communicated to team members, Discussed options with patient/fam, Discussed risks with patient/fam The patient is an appropriate candidate to undergo the planned procedure, sedation, and anesthesia. The patient immediately re-assessed prior to indication. BRENDA SWANSON MD Feb 06, 2019 10:16
--- NOTE | 2019-02-06 10:55 | Cardiac Cath Report ---
Cardiac Cath Report Physician (s)/Contract Runner (s) Physician BRENDA SWANSON MD Pre-Procedure Diagnosis Pre-Procedure Diagnosis: Coronary artery disease Post-Procedure Note Procedure Start Date: Feb 06, 2019 Name of Procedure: Left heart catheterization Findings/Procedure Note PROCEDURE NOTE: 63-year-old lady with history of hypertension, hyperlipidemia, had an abnormal stress test, scheduled for cardiac catheterization possible PTCA. After explaining the procedure to the patient, all pros and cons were explained, all questions were answered. The patient signed the consent and then she was placed on the cardiac catheterization laboratory. Groin was prepped SL fashion local anesthesia was used. Sheath placed in the Right radial artery, [place] catheter was advanced to the left ventricular cavity then left main artery and angiogram was done, exchanged into JR catheter and advanced to the right coronary artery and angiogram was done At the end of the procedure the sheath was removed. vascular band was used FINDINGS: Hemodynamics LV 110/10, end-diastolic pressure of 10 Aorta 121/65 mean of 87 ANATOMY: Left Main is free of obstructive disease Left Anterior Descending has mild disease nonobstructive disease Left Circumflex has mild disease nonobstructive disease Right Coronory Artery has mild disease nonobstructive disease LV Gram was not done, pressure was measured CONCLUSION: 1. Mild coronary artery disease nonobstructive disease 2. Normal left ventricular end-diastolic pressure DISCUSSION AND RECOMMENDATION: medical therapy is recommended no intervention is needed Anesthesia Type: Conscious Sedation Estimated blood loss (mL): 15 ml Contrast Amount: 33 ml Total Radiation Dose: 562 mGy Post-Procedure Diagnosis Post-operative diagnosis: Chest pain Coronary artery disease Hypertension Hyperlipidemia BRENDA SWANSON MD Feb 06, 2019 10:55
--- NOTE | 2019-02-06 10:57 | Discharge Inst-Post CATH ---
Discharge Inst-CATH/EP Problems Reviewed?: Yes Post Cardiac Cath/EP D/C Inst Follow Up/Plan Appointment with Dr. Mccormack's office in 2-4 weeks <b>CARDIAC CATH/EP PROCEDURE DISCHARGE INSTRUCTIONS</b> ACTIVITY * Go Home directly and rest. * Limit activity of the leg (or wrist if it was used) for 7 days including aerobics, swimming, jogging, bicycling, etc. * Restrict stair-climbing for 7 days if possible, if not, climb up with your non-cath leg, then bring together on the same step. * Avoid lifting, pushing, pulling or excessive movement of the affected extremity for 7 days. * Customary sexual activity may be resumed after 2 days-use caution not to use a position that strains or causes pain to the affected extremity. * No driving for 24 hours. * NO SMOKING. * Avoid straining for bowel movements for 7 days. * Gentle walking on level ground is allowed. * Returning to work will depend on the type of procedure and the results. Your doctor will discuss this with you. CALL YOUR DOCTOR FOR ANY OF THE FOLLOWING: *If bleeding from the puncture site occurs- Apply gentle pressure to site with clean cloth and call your doctor or EMS. * If a knot or lump forms under the skin, increases in size, or causes pain. * If bruising appears to be worsening or moving further down your leg instead of disappearing. * Temperature above 101 F. CARE OF YOUR GROIN INCISION; * Bruising or purple discoloration of the skin near the puncture site is common. * You may shower only, no bathtub bathing for 5 days. Be careful to avoid slipping as your leg may feel stiff. * If a closure device was used on your femoral artery, please see the attached guide regarding care of the device and your leg. * Leave dressing on FOR 24 hours. CARE OF YOUR WRIST INCISION; * Bruising or purple discoloration of the skin near the puncture site is common. * You may shower. * DO NOT submerge wrist. * Leave dressing on FOR 24 hours. BRENDA MCCORMACK MD Feb 06, 2019 10:56
== END 2019-02-06 14:11 | disposition home or self-care (01) ==
LOC: CATH 07:40 → SDC 11:15 → CATH 14:11
PROVIDERS: ATTEND Internal Medicine Cardiovascular Disease
DX: I25.10 Atherosclerotic heart disease of native coronary artery without angina pectoris (principal); I11.9 Hypertensive heart disease without heart failure; E78.5 Hyperlipidemia, unspecified; I27.20 Pulmonary hypertension, unspecified; R01.1 Cardiac murmur, unspecified; I65.23 Occlusion and stenosis of bilateral carotid arteries; E66.9 Obesity, unspecified; Z79.82 Long term (current) use of aspirin; Z79.899 Other long term (current) drug therapy; Z87.891 Personal history of nicotine dependence; Z68.44 Body mass index [BMI] 60.0-69.9, adult
CPT/HCPCS: 36415; 71045; 80053; 80061; 81000; 85027; 85610; 85730; 87081; 93458

== ENCOUNTER → 2019-03-23 | Outpatient (CLI) | payer MEDICARE ==
[~2019-03-23] MED LIST changes: +ACET-2650 PO; +AMLO10TA7 PO; +ASPI-983 PO; +FEXO180T84 PO; +FLUT9.9S NS; +IRBE1TAB43 PO; +LATA2.5D5 OU; +LEVO25TA5 PO; +LINA72CA PO; +MULT-436 PO; +NAPR220T66 PO; +PUMP300C PO; +SIMV20TA3 PO; +TIMO5DRO5 OU
[2019-03-23 09:34] LABS: FREE T4 (FREE THYROXINE) 0.96 NG/DL (0.70-1.48)
== END ==
LOC: LAB 08:41
PROVIDERS: ATTEND Family Medicine
DX: E03.9 Hypothyroidism, unspecified (principal)
CPT/HCPCS: 36415; 84439; 84443

== ENCOUNTER 2019-03-26 05:31 | Outpatient (CLI) | payer MEDICARE ==
[~2019-03-26] VITALS: Ht 162.6 cm; Wt 160.0 kg
== END 2019-03-26 12:49 | disposition home or self-care (01) ==
LOC: PREOP 05:31
PROVIDERS: ATTEND Surgery
DX: Z01.818 Encounter for other preprocedural examination (principal)

== ENCOUNTER 2019-04-03 07:42 | Day surgery (SDC) | payer MEDICARE ==
[~2019-04-03] VITALS: Ht 162.6 cm; Wt 160.0 kg
[2019-04-03] MEDS ORDERED: LACTATED RINGERS 1,000 ML IV PRN (08:08)
[2019-04-03] MEDS ORDERED: BUP/EPI 0.5% 1:200,000 (MARCAINE) 10ML VIAL IJ ONE (08:11)
[2019-04-03] MEDS ORDERED: ceFAZolin 2 GM IV Premixed 50 ML IV ONE (08:15)
[2019-04-03 08:29] VITALS: BP 137/68
[2019-04-03] MEDS ORDERED: ceFAZolin 2 GM/50 ML NS 50 ML IV ONE (08:30)
[2019-04-03] MEDS ORDERED: PROPOFOL INJECTION 50 ML IV ONE (09:49)
[2019-04-03] MEDS ORDERED: KETAMINE/NaCl 50 MG/5 ML SYRINGE (ED ONLY) ONE (09:49)
[2019-04-03] MEDS ORDERED: fentaNYL INJECTION 100 MCG/2 ML AMP ONE (09:50)
[2019-04-03] MEDS ORDERED: MIDAZOLAM 2 MG/2 ML (VERSED) VIAL ONE (09:52)
[2019-04-03 10:27] VITALS: BP 112/61
--- NOTE | 2019-04-03 10:29 | Progress Note-Post Operative ---
Post-Operative Progess Note Surgeon (s)/Fermenting Cellar Dropper (s) Surgeon SANDI GAONA DO Fermenting Cellar Dropper: none Pre-Operative Diagnosis Right arm mass Post-Operative Diagnosis Same pending pathology Procedure & Operative Findings Date of Procedure 04/03/19 Procedure Performed/Findings Exc of Right arm mass in Subcutaneous tissue, 4.6cm incision Anesthesia Type IV sedation by CAFE TEAM MEMBER Estimated Blood Loss Estimated blood loss (mL): scant Specimens/Packing Specimens Removed right arm mass, measure appx 5x3cm SANDI GAONA DO Apr 03, 2019 10:28 POS
[2019-04-03] MEDS ORDERED: morphine INJ 10 MG/ML 1ML (SYR OR VIAL) IVP ONE (10:30)
[2019-04-03] MEDS ORDERED: ONDANSETRON 4 MG/2 ML (SDV) Z0FRAN IVP PRN (10:30)
--- NOTE | 2019-04-03 10:30 | Discharge Inst-Surgical ---
Discharge Inst-Surgical Depart Medication/Instructions New, Converted or Re-Newed RX: Other (take ibuprofen and tylenol for pain) Patient Instructions Follow up Appt: Make appointment for 1 week. [phone] Instructions: No strenuous activity. May shower in 24 hours, no tub bath or soaking. Use incentive spirometer at home as directed. No Smoking Skin/Wound Care: May remove bandages in am. You need to leave the Dermabond on incision it will fall off on it's own. Symptoms to Report: Appetite Changes, Extremity Discoloration, Numbness/Tingling, Swelling Increased, Bleeding Excessive, Eyesight Changes, Pain Increased, Urine Color Change, Constipation(Persistent), Fever over 101 degree F, Pain/Pressure in chest, Urinating Difficulty, Cough Up/Vomit Blood, Heart Beat Irreg/Pounding, Pain/Pressure in jaw, Cramps in feet or legs, Lightheadedness, Pain/Pressure in shoulder, Diarrhea(Persistent), Memory Changes Suddenly, Questions/Concerns, Weight gain consecutive days, Dizziness/Fainting, Nausea/Vomiting, Shortness of Breath, Weight gain over 2 pounds If questions or concerns contact your physician Or seek help at emergency department. Activity Activity as Tolerated: Yes Activity Instructions: Avoid Stress to Incision Driving Instructions: No Driving for 24 Hours Diet Discharge Diet: No Restrictions Diet After 24 Hours: Clear Liquid if Nauseous If Any Problems/Questions/Issu: Contact Your Physician, Go to Emergency Room Skin/Wound Care Infection Signs and Symptoms: Increased Redness, Foul Odor of Wound, Increased Drainage, Skin Itchy or Has a Rash, Increased Swelling, Temperature Above 101 F Bathing Instructions: Shower Stitches/Lane/Dermabond Dis: Dermabond Ice Pack: Ice On and Off Site (as needed for pain) SANDI GAONA DO Apr 03, 2019 10:30 POS
[2019-04-03 10:40] VITALS: BP 108/60
[2019-04-03 10:50] VITALS: BP_SYST 121; BP_SYST 127; BP_DIAS 64; BP_DIAS 74
[2019-04-03 11:20] VITALS: BP 119/74
[2019-04-03 11:30] VITALS: BP 119/74
--- NOTE | 2019-04-03 15:07 | OPERATIVE REPORT ---
DATE OF SERVICE: 04/03/2019 PREOPERATIVE DIAGNOSIS: Right arm mass. POSTOPERATIVE DIAGNOSIS: Right arm mass, pending pathology, most likely lipoma. SURGEON: Julian Contreras DO. ELECTRICAL SUPERVISOR: None. ANESTHESIA: IV sedation by SPECIAL EDUCATION SCIENCE TEACHER: PROCEDURE PERFORMED: Excision of right arm mass in subcutaneous tissue with a 4.6 cm incision. SPECIMEN: Right arm mass, most likely lipoma, measured probably 5 cm. BLOOD LOSS: Scant. FLUIDS: Per Anesthesia. POSTOPERATIVE CONDITION: Stable. INDICATION FOR PROCEDURE: The patient is a 63-year-old female who has a mass in the right arm, complaining of pain with it and wanted this removed. It was too big and would be too deep to do it in the office, so done in the operating room. FINDINGS: The patient had a right arm mass removed, looks like it was most likely a lipoma, measured about 5 x 5 x 3 cm, 4.6 cm incision. PROCEDURE NOTE: After informed consent was obtained, the patient was brought to the operating room, placed on the operating table in supine position. She was sterilely prepped and draped in normal fashion. Local lidocaine was used to infiltrate the skin above this mass as well as around in a regional block, then made an incision with #15 blade, carried down through the skin into subcutaneous tissue, Incision measured about 4.6 cm, then deepened into subcutaneous tissue with Bovie electrocautery as well as blunt dissection. I was able to visualize this mass. It looked like a lipoma and had finger-like projections, removed this with a Bovie electrocautery and blunt dissection. I was able to get it out, measured about 5 cm x 3 cm x 5 cm. Once this was removed the site was irrigated with normal saline, hemostasis was obtained using Bovie electrocautery, then elected to close the incision with 4-0 undyed Monocryl 4 interrupted subcuticular stitches. Area was cleaned and dried. Dermabond placed as well as pressure dressing. The patient then transferred to recovery room in stable condition. Sponge, instrument and needle counts correct at the end of the case. Job ID: [id number] DocumentID: [id number] Dictated Date: 04/03/2019 10:34:11 Adoption Coordinator Date: 04/03/2019 15:06:49 Dictated By: JULIAN CONTRERAS DO [facility]
--- OUTSIDE RECORDS SUMMARY | 2019-04-28 19:44 | XMS REPORT | Continuity of Care Document ---
Author Organization Unknown Address Unknown Phone Unavailable Allergies Active Description Code Type Severity Reaction Onset Reported/Identified Relationship to Patient Clinical Status Yes No Known Allergies [id number] N/A N/A Yes No Known Drug Allergies [id number] Drug Allergy Unknown N/A 06/11/2018 Medications There is no data. Problems Date Dx Coded Attending Type Code Diagnosis Diagnosed By 06/11/2018 ALMABRYANTJulian Ambriz WATER MAIN PIPE LAYER Ot E78.49 OTHER HYPERLIPIDEMIA 06/11/2018 ALMA RUTH Pb WATER MAIN PIPE LAYER Ot H40.89 OTHER SPECIFIED GLAUCOMA 06/11/2018 ALMA RUTH Pb WATER MAIN PIPE LAYER Ot I10 ESSENTIAL (PRIMARY) HYPERTENSION 06/11/2018 ALMA RUTH Pb WATER MAIN PIPE LAYER Ot M19.90 UNSPECIFIED OSTEOARTHRITIS, UNSPECIFIED 06/11/2018 MARQUEZRUTH Pb WATER MAIN PIPE LAYER Ot R10 .9 UNSPECIFIED ABDOMINAL PAIN 06/11/2018 MARQUEZRUTH HAAS Pb WATER MAIN PIPE LAYER Ot Z90.49 ACQUIRED ABSENCE OF OTHER SPECIFIED PART 06/17/2018 ALMA RUTH Pb WATER MAIN PIPE LAYER Ot E78.49 OTHER HYPERLIPIDEMIA 06/17/2018 MARQUEZRUTH L WATER MAIN PIPE LAYER Ot H40.89 OTHER SPECIFIED GLAUCOMA 06/17/2018 ALMA RUTH Pb WATER MAIN PIPE LAYER Ot I10 ESSENTIAL (PRIMARY) HYPERTENSION 06/17/2018 ALMA RUTH Pb WATER MAIN PIPE LAYER Ot M19.90 UNSPECIFIED OSTEOARTHRITIS, UNSPECIFIED 06/17/2018 ALMA RUTH Pb WATER MAIN PIPE LAYER Ot R10 .9 UNSPECIFIED ABDOMINAL PAIN 06/17/2018 ALMARUTH Pb WATER MAIN PIPE LAYER Ot Z90.49 ACQUIRED ABSENCE OF OTHER SPECIFIED PART 06/22/2018 DERECK VALIENTE MD Ot E78. 00 PURE HYPERCHOLESTEROLEMIA, UNSPECIFIED 06/22/2018 DERECK VALIENTE MD Ot E78. 49 OTHER HYPERLIPIDEMIA 06/22/2018 DERECK VALIENTE MD Ot H40. 89 OTHER SPECIFIED GLAUCOMA 06/22/2018 DERECK VALIENTE MD Ot I10 ESSENTIAL (PRIMARY) HYPERTENSION 06/22/2018 ROCCO MD, DERECK J Ot K59. 00 CONSTIPATION, UNSPECIFIED 06/22/2018 DERECK VALIENTE MD J Ot M19. 90 UNSPECIFIED OSTEOARTHRITIS, UNSPECIFIED 06/22/2018 DERECK VALIENTE MD Ot R10. 31 RIGHT LOWER QUADRANT PAIN 06/22/2018 DERECK VALIENTE MD Ot R10. 9 UNSPECIFIED ABDOMINAL PAIN 06/22/2018 DERECK VALIENTE MD Ot R11. 0 NAUSEA 06/22/2018 DERECK VALIENTE MD Ot Z87. 19 PERSONAL HISTORY OF OTHER DISEASES OF TH 06/22/2018 DERECK VALIENTE MD Ot Z90. 49 ACQUIRED ABSENCE OF OTHER SPECIFIED PART 06/22/2018 DERECK VALIENTE MD Ot Z90. 89 ACQUIRED ABSENCE OF OTHER ORGANS 07/03/2018 RUTH MARQUEZ WATER MAIN PIPE LAYER Ot E78.49 OTHER HYPERLIPIDEMIA 07/03/2018 RUTH MARQUEZ L WATER MAIN PIPE LAYER Ot H40.89 OTHER SPECIFIED GLAUCOMA 07/03/2018 RUTH MARQUEZ WATER MAIN PIPE LAYER Ot I10 ESSENTIAL (PRIMARY) HYPERTENSION 07/03/2018 RUTH MARQUEZ L WATER MAIN PIPE LAYER Ot M19.90 UNSPECIFIED OSTEOARTHRITIS, UNSPECIFIED 07/03/2018 RUTH MARQUEZ L WATER MAIN PIPE LAYER Ot R10 .9 UNSPECIFIED ABDOMINAL PAIN 07/03/2018 RUTH MARQUEZ L WATER MAIN PIPE LAYER Ot Z90.49 ACQUIRED ABSENCE OF OTHER SPECIFIED PART 12/16/2018 GISELLE GRACE WATER MAIN PIPE LAYER Ot E05.90 THYROTOXICOSIS, UNSP WITHOUT THYROTOXIC 12/16/2018 GISELLE GRACE WATER MAIN PIPE LAYER Ot E78.2 MIXED HYPERLIPIDEMIA 12/19/2018 GISELLE GRACE WATER MAIN PIPE LAYER Ot R01.1 CARDIAC MURMUR, UNSPECIFIED 12/19/2018 GISELLE GRACE WATER MAIN PIPE LAYER Ot R01.1 CARDIAC MURMUR, UNSPECIFIED 01/09/2019 GISELLE GRACE WATER MAIN PIPE LAYER Ot E78.5 HYPERLIPIDEMIA, UNSPECIFIED 01/09/2019 GISELLE GRACE WATER MAIN PIPE LAYER Ot I1 0 ESSENTIAL (PRIMARY) HYPERTENSION 01/09/2019 GISELLE GRACE WATER MAIN PIPE LAYER Ot R60.9 EDEMA, UNSPECIFIED 01/10/2019 GISELLE GRACE WATER MAIN PIPE LAYER Ot R01.1 CARDIAC MURMUR, UNSPECIFIED 01/25/2019 SKY VERMA, BRENDA Biggs Ot E66. 01 MORBID (SEVERE) OBESITY DUE TO EXCESS CA 01/25/2019 BRENDA SWANSON MD Ot I11. 9 HYPERTENSIVE HEART DISEASE WITHOUT HEART 01/25/2019 BRENDA SWANSON MD Ot I25. 89 OTHER FORMS OF CHRONIC ISCHEMIC HEART DI 02/06/2019 BRENDA SWANSON MD Ot E66. 9 OBESITY, UNSPECIFIED 02/06/2019 BRENDA SWANSON MD Ot E78. 5 HYPERLIPIDEMIA, UNSPECIFIED 02/06/2019 BRENDA SWANSON MD Ot I11. 9 HYPERTENSIVE HEART DISEASE WITHOUT HEART 02/06/2019 BRENDA SWANSON MD Ot I25. 10 ATHSCL HEART DISEASE OF [place] CORONARY 02/06/2019 BRENDA SWANSON MD Ot I27. 20 PULMONARY HYPERTENSION, UNSPECIFIED 02/06/2019 BRENDA SWANSON MD Ot I65. 23 OCCLUSION AND STENOSIS OF [place] 02/06/2019 BRENDA SWANSON MD Ot R01. 1 CARDIAC MURMUR, UNSPECIFIED 02/06/2019 BRENDA SWANSON MD Ot Z68. 44 BODY MASS INDEX (BMI) 60.0-69.9, ADULT 02/06/2019 BRENDA SWANSON MD Ot Z79. 82 YARD ATTENDANT (CURRENT) USE OF ASPIRIN 02/06/2019 BRENDA SWANSON MD Ot Z79.899 OTHER SENIOR CARE (CURRENT) DRUG THERAPY 02/06/2019 BRENDA SWANSON MD Ot Z87.891 PERSONAL HISTORY OF NICOTINE DEPENDENCE 02/09/2019 BRENDA SWANSON MD Ot E66. 9 OBESITY, UNSPECIFIED 02/09/2019 BRENDA SWANSON MD Ot E78. 5 HYPERLIPIDEMIA, UNSPECIFIED 02/09/2019 BRENDA SWANSON MD Ot I11. 9 HYPERTENSIVE HEART DISEASE WITHOUT HEART 02/09/2019 BRENDA SWANSON MD Ot I25. 10 ATHSCL HEART DISEASE OF [place] CORONARY 02/09/2019 BRENDA SWANSON MD Ot I27. 20 PULMONARY HYPERTENSION, UNSPECIFIED 02/09/2019 BRENDA SWANSON MD Ot I65. 23 OCCLUSION AND STENOSIS OF [place] 02/09/2019 BRENDA SWANSON MD Ot R01. 1 CARDIAC MURMUR, UNSPECIFIED 02/09/2019 BRENDA SWANSON MD Ot Z68. 44 BODY MASS INDEX (BMI) 60.0-69.9, ADULT 02/09/2019 BRENDA SWANSON MD Ot Z79. 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, SUBC 04/13/2019 SANDI GAONA DO B Ot E78.2 MIXED HYPERLIPIDEMIA 04/13/2019 SANDI GAONA DO B Ot E78.5 HYPERLIPIDEMIA, UNSPECIFIED 04/13/2019 SANDI GAONA DO B Ot I10 ESSENTIAL (PRIMARY) HYPERTENSION 04/13/2019 SANDI GAONA DO B Ot I25.1 19 ATHSCL HEART DISEASE OF [place] COR ART W 04/13/2019 NOE GAONA DOIC B Ot I27.2 0 PULMONARY HYPERTENSION, UNSPECIFIED 04/13/2019 SANDI GAONA DO B Ot I65.2 9 OCCLUSION AND STENOSIS OF UNSPECIFIED CA 04/13/2019 SANDI GAONA DO B Ot M19.9 0 UNSPECIFIED OSTEOARTHRITIS, UNSPECIFIED 04/13/2019 SANDI GAONA DO B Ot Z68.4 4 BODY MASS INDEX (BMI) 60.0-69.9, ADULT 04/13/2019 SANDI GAONA DO Ot Z79.8 2 YARD ATTENDANT (CURRENT) USE OF ASPIRIN 04/13/2019 SANDI GAONA DO B Ot Z79.8 99 OTHER YARD ATTENDANT (CURRENT) DRUG THERAPY 04/13/2019 SANDI GAONA DO Ot Z82.4 9 FAMILY HX OF ISCHEM HEART DIS AND OTH DI 04/13/2019 SANDI GAONA DO B Ot Z83.2 FAMILY HISTORY OF DIS OF THE BLD/BLD-FOR 04/13/2019 SANDI GAONA DO Ot Z85.8 31 PERSONAL HISTORY OF MALIGNANT NEOPLASM O 04/13/2019 SANDI GAONA DO Ot Z87.8 91 PERSONAL HISTORY OF NICOTINE DEPENDENCE 04/26/2019 SAMI VERMA, CHANTALE Price Ot E03.9 HYPOTHYROIDISM, UNSPECIFIED Procedures There is no data. Results Test Result Range Complete blood count (CBC) with automate d white blood cell (WBC) differential - 06/11/18 16:20 Blood leukocytes automated count (number/volume) 8.8 10*3/uL 4.3-11.0 Blood erythrocytes automated count (number/volume) 4.36 10*6/uL 4.35-5.85 Venous blood hemoglobin measurement (mass/volume) 13.2 g/dL 11.5-16.0 Blood hematocrit (volume fraction) 39 % 35-52 Automated erythrocyte mean corpuscular volume 90 [ foz_us] 80-99 Automated erythrocyte mean corpuscular h emoglobin (mass per erythrocyte) 30 pg 25-34 Automated erythrocyte mean corpuscular h emoglobin concentration measurement (mass/volume) 34 g/dL 32-36 Automated erythrocyte distribution width ratio 13. 0 % 10.0- 14.5 Automated blood platelet count (count/volume) 359 10*3/uL 130-400 Automated blood platelet mean volume measurement 10.1 [foz_us] 7.4-10.4 Automated blood neutrophils/100 leukocytes 62 % 42-75 Automated blood lymphocytes/100 leukocytes 28 % 12-44 Blood monocytes/100 leukocytes 7 % 0-12 Automated blood eosinophils/100 leukocytes 2 % 0-10 Automated blood basophils/100 leukocytes 0 % 0-10 Blood neutrophils automated count (number/volume) 5.5 10*3 1.8-7.8 Blood lymphocytes automated count (number/volume) 2.5 10*3 1.0-4.0 Blood monocytes automated count (number/volume) 0. 6 10*3 0.0-1.0 Automated eosinophil count 0.2 10*3/uL 0 .0-0.3 Automated blood basophil count (count/volume) 0.0 10*3/uL 0.0-0.1 Comprehensive metabolic panel - 06/11/18 16:20 Serum or plasma sodium measurement (moles/volume) 140 mmol/L 135-145 Serum or plasma potassium measurement (moles/volume) 4.1 mmol/L 3.6-5.0 Serum or plasma chloride measurement (moles/volume) 106 mmol/L 98-107 Carbon dioxide 22 mmol/L 21-32 Serum or plasma anion gap determination (moles/volume) 12 mmol/L 5-14 Serum or plasma urea nitrogen measurement (mass/volume ) 31 mg/dL 7-18 Serum or plasma creatinine measurement (mass/volume) 1.18 mg/dL 0.60-1.30 Serum or plasma urea nitrogen/creatinine mass ratio 26 NRG Serum or plasma creatinine measurement w ith calculation of estimated glomerular filtration rate 46 NRG Serum or plasma glucose measurement (mass/volume) 154 mg/dL 70-105 Serum or plasma calcium measurement (mass/volume) 10.6 mg/dL 8.5-10.1 Serum or plasma total bilirubin measurement (mass/volu me) 0.5 mg/dL 0.1-1.0 Serum or plasma alkaline phosphatase tita surement (enzymatic activity/volume) 96 U/L 40-136 Serum or plasma aspartate aminotransfera se measurement (enzymatic activity/volume) 19 U/L 5-34 Serum or plasma alanine aminotransferase measurement (enzymatic activity/volume) 22 U/L 0-55 Serum or plasma protein measurement (mass/volume) 7.1 g/dL 6.4-8.2 Serum or plasma albumin measurement (mass/volume) 4.2 g/dL 3.2-4.5 CALCIUM CORRECTED 10.4 mg/dL 8.5-10.1 Serum or plasma C reactive protein measu rement (mass/volume) - 06/11/18 16:20 Serum or plasma C reactive protein measurement (mass/v olume) 0.39 mg/dL 0.00-0.50 Complete urinalysis with reflex to cultu re - 06/11/18 17:47 Urine color determination YELLOW NRG Urine clarity determination CLEAR NR G Urine pH measurement by test strip 5 5-9 Specific gravity of urine by test strip 1.020 1.016-1.022 Urine protein assay by test strip, semi-quantitative NEGATIVE NEGATIVE Urine glucose detection by automated test strip NE GATIVE NEGATIVE Erythrocytes detection in urine sediment by light micr oscopy NEGATIVE NEGATIVE Urine ketones detection by automated test strip 1+ NEGATIVE Urine nitrite detection by test strip NEGATIVE NEGATIVE Urine total bilirubin detection by test strip NEGA TIVE NEGATIVE Urine urobilinogen measurement by automated test strip (mass/volume) NORMAL NORMAL Urine leukocyte esterase detection by dipstick NEG ATIVE NEGATIVE Automated urine sediment erythrocyte cou nt by microscopy (number/high power field) [HPF] NRG Automated urine sediment leukocyte count by microscopy (number/high power field) [HPF] NRG Bacteria detection in urine sediment by light microsco py LARGE NRG Squamous epithelial cells detection in u rine sediment by light microscopy 2-5 NRG Crystals detection in urine sediment by light microsco py NONE NRG Casts detection in urine sediment by light microscopy NONE NRG Mucus detection in urine sediment by light microscopy NEGATIVE NRG Complete urinalysis with reflex to culture YES NRG Bacterial urine culture - 06/11/18 17:47 Bacterial urine culture [id number] NRG COLONY COUNT >100,000/ML NRG FTX;REPORTABLE SENSITIVITY REPORTED 06/13/18 12:05 NRG FREE TEXT ENTRY 2 ID REPORTED 06/12/18 16:05 NRG RML Sensitivity Panel - 06/11/18 17:47 Gentamicin susceptibility test by minimum inhibitory c oncentration <= NRG Trimethoprim/sulfamethoxazole susceptibi lity test by minimum inhibitoryconcentration <= NRG Levofloxacin susceptibility test by minimum inhibitory concentration <= NRG Ampicillin susceptibility test by minimum inhibitory c oncentration <= NRG Cefazolin susceptibility test by minimum inhibitory co ncentration <= NRG Ceftriaxone susceptibility test by minimum inhibitory concentration <= NRG Ciprofloxacin susceptibility test by minimum inhibitor y concentration <= NRG Meropenem susceptibility test by minimum inhibitory co ncentration <= NRG Nitrofurantoin susceptibility test by mi nimum inhibitory concentration <= NRG Amoxicillin and clavulanate potassium susc VISHNU <= NRG Complete blood count (CBC) with automate d white blood cell (WBC) differential - 12/16/18 07:25 Blood leukocytes automated count (number/volume) 7.9 10*3/uL 4.3-11.0 Blood erythrocytes automated count (number/volume) 4.23 10*6/uL 4.35-5.85 Venous blood hemoglobin measurement (mass/volume) 12.8 g/dL 11.5-16.0 Blood hematocrit (volume fraction) 38 % 35-52 Automated erythrocyte mean corpuscular volume 91 [ foz_us] 80-99 Automated erythrocyte mean corpuscular h emoglobin (mass per erythrocyte) 30 pg 25-34 Automated erythrocyte mean corpuscular h emoglobin concentration measurement (mass/volume) 33 g/dL 32-36 Automated erythrocyte distribution width ratio 13. 2 % 10.0- 14.5 Automated blood platelet count (count/volume) 273 10*3/uL 130-400 Automated blood platelet mean volume measurement 10.1 [foz_us] 7.4-10.4 Automated blood neutrophils/100 leukocytes 61 % 42-75 Automated blood lymphocytes/100 leukocytes 27 % 12-44 Blood monocytes/100 leukocytes 9 % 0-12 Automated blood eosinophils/100 leukocytes 4 % 0-10 Automated blood basophils/100 leukocytes 0 % 0-10 Blood neutrophils automated count (number/volume) 4.8 10*3 1.8-7.8 Blood lymphocytes automated count (number/volume) 2.1 10*3 1.0-4.0 Blood monocytes automated count (number/volume) 0. 7 10*3 0.0-1.0 Automated eosinophil count 0.3 10*3/uL 0 .0-0.3 Automated blood basophil count (count/volume) 0.0 10*3/uL 0.0-0.1 Comprehensive metabolic panel - 12/16/18 07:25 Serum or plasma sodium measurement (moles/volume) 140 mmol/L 135-145 Serum or plasma potassium measurement (moles/volume) 4.3 mmol/L 3.6-5.0 Serum or plasma chloride measurement (moles/volume) 104 mmol/L 98-107 Carbon dioxide 24 mmol/L 21-32 Serum or plasma anion gap determination (moles/volume) 12 mmol/L 5-14 Serum or plasma urea nitrogen measurement (mass/volume ) 35 mg/dL 7-18 Serum or plasma creatinine measurement (mass/volume) 1.11 mg/dL 0.60-1.30 Serum or plasma urea nitrogen/creatinine mass ratio 32 NRG Serum or plasma creatinine measurement w ith calculation of estimated glomerular filtration rate 49 NRG Serum or plasma glucose measurement (mass/volume) 134 mg/dL 70-105 Serum or plasma calcium measurement (mass/volume) 10.7 mg/dL 8.5-10.1 Serum or plasma total bilirubin measurement (mass/volu me) 0.5 mg/dL 0.1-1.0 Serum or plasma alkaline phosphatase tita surement (enzymatic activity/volume) 108 U/L 40-136 Serum or plasma aspartate aminotransfera se measurement (enzymatic activity/volume) 17 U/L 5-34 Serum or plasma alanine aminotransferase measurement (enzymatic activity/volume) 17 U/L 0-55 Serum or plasma protein measurement (mass/volume) 7.2 g/dL 6.4-8.2 Serum or plasma albumin measurement (mass/volume) 4.0 g/dL 3.2-4.5 CALCIUM CORRECTED 10.7 mg/dL 8.5-10.1 Lipid 1996 panel - 12/16/18 07:25 Serum or plasma triglyceride measurement (mass/volume) 165 mg/dL <150 Serum or plasma cholesterol measurement (mass/volume) 191 mg/dL < 200 Serum or plasma cholesterol in HDL measurement (mass/v olume) 52 mg/dL 40-60 Cholesterol in LDL [mass/volume] in serum or plasma by direct assay 112 mg/dL 1-129 Serum or plasma cholesterol in VLDL measurement (mass/ volume) 33 mg/dL 5-40 THYROID STIMULATING HORMONE - 12/16/18 0 7:25 THYROID STIMULATING HORMONE 7.06 u[iU]/mL 0.35-4.94 Serum or plasma thyroxine (T4) free valorie urement (mass/volume) - 12/16/18 07:25 Serum or plasma thyroxine (T4) free measurement (mass/ volume) 0.92 ng/dL 0.70-1.48 Hemoglobin A1c measurement - 12/16/18 07 :25 Blood hemoglobin A1C measurement (mass/volume) 5.8 % 4.0-5.6 MEAN BLOOD GLUCOSE 120 % <=126 Serum or plasma intact pararthyroid horm one measurement (mass/volume) - 12/16/18 07:25 Serum or plasma intact parathyroid hormone measurement (mass/volume) 76.3 pg/mL 9.0-77.0 Bio-intact parathyroid hormone (PTH) measurement with calcium 10.5 % 8.5-10.5 Complete urinalysis with reflex to cultu re - 02/06/19 08:00 Urine color determination YELLOW NRG Urine clarity determination CLEAR NR G Urine pH measurement by test strip 6.5 5-9 Specific gravity of urine by test strip 1.010 1.016-1.022 Urine protein assay by test strip, semi-quantitative NEGATIVE NEGATIVE Urine glucose detection by automated test strip NE GATIVE NEGATIVE Erythrocytes detection in urine sediment by light micr oscopy NEGATIVE NEGATIVE Urine ketones detection by automated test strip NE GATIVE NEGATIVE Urine nitrite detection by test strip NEGATIVE NEGATIVE Urine total bilirubin detection by test strip NEGA TIVE NEGATIVE Urine urobilinogen measurement by automated test strip (mass/volume) NORMAL NORMAL Urine leukocyte esterase detection by dipstick NEG ATIVE NEGATIVE Automated urine sediment erythrocyte cou nt by microscopy (number/high power field) NONE NRG Automated urine sediment leukocyte count by microscopy (number/high power field) NONE NRG Bacteria detection in urine sediment by light microsco py NEGATIVE NRG Squamous epithelial cells detection in u rine sediment by light microscopy RARE NRG Crystals detection in urine sediment by light microsco py NONE NRG Casts detection in urine sediment by light microscopy NONE NRG Mucus detection in urine sediment by light microscopy NEGATIVE NRG Complete urinalysis with reflex to culture NO NRG PT panel in platelet poor plasma by coag ulation assay - 02/06/19 08:14 Prothrombin time (PT) in platelet poor plasma by coagu lation assay 14.0 s 12.2-14.7 INR in platelet poor plasma or blood by coagulation as say 1.0 0.8-1.4 Activated partial thromboplastin time (a PTT) in platelet poor plasma bycoagulation assay - 02/06/19 08:14 Activated partial thromboplastin time (a PTT) in platelet poor plasma bycoagulation assay 30 s 24-35 Comprehensive metabolic panel - 02/06/19 08:14 Serum or plasma sodium measurement (moles/volume) 142 mmol/L 135-145 Serum or plasma potassium measurement (moles/volume) 4.3 mmol/L 3.6-5.0 Serum or plasma chloride measurement (moles/volume) 107 mmol/L 98-107 Carbon dioxide 25 mmol/L 21-32 Serum or plasma anion gap determination (moles/volume) 10 mmol/L 5-14 Serum or plasma urea nitrogen measurement (mass/volume ) 32 mg/dL 7-18 Serum or plasma creatinine measurement (mass/volume) 1.07 mg/dL 0.60-1.30 Serum or plasma urea nitrogen/creatinine mass ratio 30 NRG Serum or plasma creatinine measurement w ith calculation of estimated glomerular filtration rate 52 NRG Serum or plasma glucose measurement (mass/volume) 117 mg/dL 70-105 Serum or plasma calcium measurement (mass/volume) 10.8 mg/dL 8.5-10.1 Serum or plasma total bilirubin measurement (mass/volu me) 0.6 mg/dL 0.1-1.0 Serum or plasma alkaline phosphatase tita surement (enzymatic activity/volume) 108 U/L 40-136 Serum or plasma aspartate aminotransfera se measurement (enzymatic activity/volume) 21 U/L 5-34 Serum or plasma alanine aminotransferase measurement (enzymatic activity/volume) 26 U/L 0-55 Serum or plasma protein measurement (mass/volume) 7.8 g/dL 6.4-8.2 Serum or plasma albumin measurement (mass/volume) 4.5 g/dL 3.2-4.5 CALCIUM CORRECTED 10.4 mg/dL 8.5-10.1 Lipid 1996 panel - 02/06/19 08:14 Serum or plasma triglyceride measurement (mass/volume) 164 mg/dL <150 Serum or plasma cholesterol measurement (mass/volume) 200 mg/dL < 200 Serum or plasma cholesterol in HDL measurement (mass/v olume) 58 mg/dL 40-60 Cholesterol in LDL [mass/volume] in serum or plasma by direct assay 121 mg/dL 1-129 Serum or plasma cholesterol in VLDL measurement (mass/ volume) 33 mg/dL 5-40 Automated blood complete blood count (he mogram) panel - 02/06/19 08:14 Blood leukocytes automated count (number/volume) 9.1 10*3/uL 4.3-11.0 Blood erythrocytes automated count (number/volume) 4.39 10*6/uL 4.35-5.85 Venous blood hemoglobin measurement (mass/volume) 13.4 g/dL 11.5-16.0 Blood hematocrit (volume fraction) 40 % 35-52 Automated erythrocyte mean corpuscular volume 92 [ foz_us] 80-99 Automated erythrocyte mean corpuscular h emoglobin (mass per erythrocyte) 31 pg 25-34 Automated erythrocyte mean corpuscular h emoglobin concentration measurement (mass/volume) 33 g/dL 32-36 Automated erythrocyte distribution width ratio 13. 1 % 10.0- 14.5 Automated blood platelet count (count/volume) 278 10*3/uL 130-400 Automated blood platelet mean volume measurement 10.2 [foz_us] 7.4-10.4 Methicillin resistant Staphylococcus aur eus (MRSA) screening culture - 02/06/19 08:14 Methicillin resistant Staphylococcus aureus (MRSA) scr eening culture NEG NRG THYROID STIMULATING HORMONE - 03/23/19 0 8:52 THYROID STIMULATING HORMONE 3.60 u[iU]/mL 0.35-4.94 Serum or plasma thyroxine (T4) free valorie urement (mass/volume) - 03/23/19 08:52 Serum or plasma thyroxine (T4) free measurement (mass/ volume) 0.96 ng/dL 0.70-1.48 Methicillin resistant Staphylococcus aur eus (MRSA) screening culture - 04/03/19 08:20 Methicillin resistant Staphylococcus aureus (MRSA) scr eening culture NEG NRG Encounters ACCT No. Visit Date/Time Discharge Status Pt. Type Provider Facility Loc./Unit Complaint [id number] 06/18/2018 10:20:51 06/18/2018 23:59: 59 [facility]ST[facility] Outpatient Omar Hopkins [id number] 08/07/2017 08:54:46 08/07/2017 23:59: 59 [facility] Outpatient Omar Hopkins [id number] 02/09/2017 08:59:55 02/09/2017 23:59: 59 [facility] Outpatient Omar Hopkins [id number] 07/25/2016 10:42:27 07/25/2016 23:59: 59 [facility]ST[facility] Outpatient Omar Hopkins [id number] 05/17/2016 10:03:10 05/17/2016 23:59: 59 DEST[facility] Outpatient Omar Hopkins [id number] 03/01/2016 08:50:38 03/01/2016 23:59: 59 DEST[facility] Outpatient Omar Hopkins [id number] 02/23/2015 09:23:33 02/23/2015 23:59: 59 DESTIN[facility] Outpatient Omar Hopkins [id number] 01/12/2015 10:44:50 01/12/2015 23:59: 59 DEST[facility] Outpatient Omar Hopkins [id number] 11/27/2013 11:01:48 11/27/2013 23:59: 59 [facility]ST[facility] Outpatient Omar Hopkins [id number] 04/03/2019 07:42:00 11:30:00 DIS Outpatient SANDI GAONA DO [facility] LIPOMA RIGHT UPPER ARM [id number] 03/26/2019 05:31:00 12:49:00 DIS Outpatient SANDI GAONA DO [facility] PREOP LIPOMA RIGHT UPPER ARM [id number] 03/23/2019 08:41:00 23:59:59 CLS Outpatient CHANTALE GALLARDO MD [facility] LAB HYPOTHYROID [id number] 02/06/2019 07:40:00 14:11:00 DIS Outpatient BRENDA SWANSON MD [facility] CATH ABN STRESS, CHF, CAD, H TN, SOB [id number] 01/23/2019 08:08:00 23:59:59 CLS Outpatient BRENDA SWANSON MD [facility] CARD HTN [id number] 12/17/2018 09:34:00 23:59:59 CLS Outpatient GISELLE GRACE APRN [facility] CARD NEW HEART MURMUR [id number] 12/16/2018 07:13:00 23:59:59 CLS Outpatient GISELLE GRACE W[employer] [facility] LAB HTN,EDEMA,HYPERLIPIDEM IA [id number] 06/11/2018 15:40:00 23:59:59 CLS Outpatient RUTH MARQUEZ W[employer] [facility] RAD R FLANK PAIN [id number] 06/11/2018 16:06:00 18:40:00 DIS Outpatient DERECK VALIENTE MD [facility] ER RT SIDE PAIN,NAUSEA,VOM ITTING [id number] 06/22/2018 10:15:30 06/22/2018 23:59:5 9 CLS Outpatient [id number] 07/22/2017 12:52:16 Document Registration
== END 2019-04-03 11:30 | disposition home or self-care (01) ==
LOC: SDC 07:42
PROVIDERS: ATTEND Surgery
DX: D17.21 Benign lipomatous neoplasm of skin and subcutaneous tissue of right arm (principal); I25.119 Atherosclerotic heart disease of native coronary artery with unspecified angina pectoris; I65.29 Occlusion and stenosis of unspecified carotid artery; I27.20 Pulmonary hypertension, unspecified; E78.5 Hyperlipidemia, unspecified; I10 Essential (primary) hypertension; E78.2 Mixed hyperlipidemia; M19.90 Unspecified osteoarthritis, unspecified site; Z68.44 Body mass index [BMI] 60.0-69.9, adult; Z79.82 Long term (current) use of aspirin; Z79.899 Other long term (current) drug therapy; Z85.831 Personal history of malignant neoplasm of soft tissue; Z87.891 Personal history of nicotine dependence; Z82.49 Family history of ischemic heart disease and other diseases of the circulatory system; Z83.2 Family history of diseases of the blood and blood-forming organs and certain disorders involving the immune mechanism
CPT/HCPCS: 87081; 88304

== ENCOUNTER → 2019-10-12 | Outpatient (CLI) | payer MEDICARE ==
[~2019-10-12] MED LIST changes: +SIMV20TA26 PO; -SIMV20TA3 PO
[2019-10-12 09:14] LABS: BASOPHILS % (AUTO) 0 % (0-10); EOSINOPHILS # (AUTO) 0.2 10^3/uL (0.0-0.3); EOSINOPHILS % (AUTO) 3 % (0-10); HEMATOCRIT 41 % (35-52); HEMOGLOBIN 13.7 G/DL (11.5-16.0); LYMPHOCYTES # (AUTO) 1.6 X 10^3 (1.0-4.0); LYMPHOCYTES % (AUTO) 23 % (12-44); MEAN CORPUSCULAR HEMOGLOBIN 31 PG (25-34); MEAN CORPUSCULAR HGB CONC 34 G/DL (32-36); MEAN CORPUSCULAR VOLUME 91 FL (80-99); MEAN PLATELET VOLUME 10.4 FL (7.4-10.4); MONOCYTES # (AUTO) 0.5 X 10^3 (0.0-1.0); MONOCYTES % (AUTO) 8 % (0-12); NEUTROPHILS # (AUTO) 4.6 X 10^3 (1.8-7.8); NEUTROPHILS % (AUTO) 66 % (42-75); PLATELET COUNT 272 10^3/uL (130-400); RED CELL DISTRIBUTION WIDTH 13.1 % (10.0-14.5)
[2019-10-12 09:17] LABS: POTASSIUM 3.9 MMOL/L (3.6-5.0)
[2019-10-12 09:18] LABS: ALBUMIN 4.4 GM/DL (3.2-4.5)
[2019-10-12 09:19] LABS: CALCIUM 10.9 MG/DL (8.5-10.1)
[2019-10-12 09:20] LABS: TOTAL PROTEIN 7.8 GM/DL (6.4-8.2)
[2019-10-12 09:22] LABS: BILIRUBIN,TOTAL 0.5 MG/DL (0.1-1.0)
[2019-10-12 09:24] LABS: CREATININE SERUM 1.15 MG/DL (0.60-1.30)
[2019-10-12 09:50] LABS: FREE T4 (FREE THYROXINE) 1.03 NG/DL (0.70-1.48)
== END ==
LOC: LAB 08:19
PROVIDERS: ATTEND Family Medicine
DX: R73.9 Hyperglycemia, unspecified (principal); E03.9 Hypothyroidism, unspecified; I10 Essential (primary) hypertension
CPT/HCPCS: 36415; 80053; 80061; 83036; 84439; 84443; 85025

== ENCOUNTER → 2019-11-04 | Outpatient (CLI) | payer MEDICARE | LOC: CARD 08:52 | PROVIDERS: ATTEND Internal Medicine Cardiovascular Disease | DX: I07.1 Rheumatic tricuspid insufficiency (principal); I25.10 Atherosclerotic heart disease of native coronary artery without angina pectoris; H34.8192 Central retinal vein occlusion, unspecified eye, stable | CPT/HCPCS: 93306 ==

== ENCOUNTER → 2020-01-27 | Outpatient (CLI) | payer MEDICARE ==
[~2020-01-27] MED LIST changes: +ASPI-1238 PO; -ASPI-983 PO
[2020-01-27 11:18] LABS: ALBUMIN 4.2 GM/DL (3.2-4.5); BILIRUBIN,TOTAL 0.5 MG/DL (0.1-1.0); CALCIUM 10.5 MG/DL (8.5-10.1); CREATININE SERUM 1.17 MG/DL (0.60-1.30); POTASSIUM 4.5 MMOL/L (3.6-5.0); TOTAL PROTEIN 7.8 GM/DL (6.4-8.2)
== END ==
LOC: LAB 10:28
PROVIDERS: ATTEND Family Medicine
DX: Z01.89 Encounter for other specified special examinations (principal)
CPT/HCPCS: 36415; 80053; 83036

== ENCOUNTER → 2020-05-05 | Outpatient (CLI) | payer MEDICARE ==
[~2020-05-05] MED LIST changes: +AMLO-251 PO; -AMLO10TA7 PO
[2020-05-05 09:00] LABS: BASOPHILS % (AUTO) 0 % (0-10); EOSINOPHILS # (AUTO) 0.4 10^3/uL (0.0-0.3); EOSINOPHILS % (AUTO) 5 % (0-10); HEMATOCRIT 41 % (35-52); HEMOGLOBIN 13.2 g/dL (11.5-16.0); LYMPHOCYTES # (AUTO) 1.7 10^3/uL (1.0-4.0); LYMPHOCYTES % (AUTO) 23 % (12-44); MEAN CORPUSCULAR HEMOGLOBIN 30 pg (25-34); MEAN CORPUSCULAR HGB CONC 32 g/dL (32-36); MEAN CORPUSCULAR VOLUME 93 fL (80-99); MONOCYTES # (AUTO) 0.6 10^3/uL (0.0-1.0); MONOCYTES % (AUTO) 8 % (0-12); NEUTROPHILS # (AUTO) 4.8 10^3/uL (1.8-7.8); NEUTROPHILS % (AUTO) 64 % (42-75); PLATELET COUNT 289 10^3/uL (130-400); WHITE BLOOD COUNT 7.6 10^3/uL (4.3-11.0)
[2020-05-05 09:19] LABS: ALBUMIN 4.2 GM/DL (3.2-4.5); BILIRUBIN,TOTAL 0.5 MG/DL (0.1-1.0); CALCIUM 10.4 MG/DL (8.5-10.1); CREATININE SERUM 1.1 MG/DL (0.60-1.30); POTASSIUM 4.4 MMOL/L (3.6-5.0); TOTAL PROTEIN 7.9 GM/DL (6.4-8.2)
== END ==
LOC: LAB 08:36
PROVIDERS: ATTEND Nurse Practitioner Family
DX: Z13.6 Encounter for screening for cardiovascular disorders (principal); I10 Essential (primary) hypertension; R73.01 Impaired fasting glucose
CPT/HCPCS: 36415; 80053; 80061; 83036; 85025

== ENCOUNTER → 2020-10-31 | Outpatient (CLI) | payer MEDICARE ==
[2020-10-31 09:16] LABS: BASOPHILS % (AUTO) 1 % (0-10); EOSINOPHILS # (AUTO) 0.4 10^3/uL (0.0-0.3); EOSINOPHILS % (AUTO) 6 % (0-10); HEMATOCRIT 41 % (35-52); HEMOGLOBIN 13.4 g/dL (11.5-16.0); LYMPHOCYTES # (AUTO) 1.6 10^3/uL (1.0-4.0); LYMPHOCYTES % (AUTO) 23 % (12-44); MEAN CORPUSCULAR HEMOGLOBIN 30 pg (25-34); MEAN CORPUSCULAR HGB CONC 32 g/dL (32-36); MEAN CORPUSCULAR VOLUME 94 fL (80-99); MEAN PLATELET VOLUME 9.7 fL (9.0-12.2); MONOCYTES # (AUTO) 0.6 10^3/uL (0.0-1.0); MONOCYTES % (AUTO) 9 % (0-12); NEUTROPHILS % (AUTO) 60 % (42-75); PLATELET COUNT 271 10^3/uL (130-400); WHITE BLOOD COUNT 6.6 10^3/uL (4.3-11.0)
[2020-10-31 09:24] LABS: ALBUMIN 4.3 GM/DL (3.2-4.5); POTASSIUM 4.4 MMOL/L (3.6-5.0)
[2020-10-31 09:25] LABS: CALCIUM 11.1 MG/DL (8.5-10.1)
[2020-10-31 09:27] LABS: TOTAL PROTEIN 7.6 GM/DL (6.4-8.2)
[2020-10-31 09:28] LABS: BILIRUBIN,TOTAL 0.6 MG/DL (0.1-1.0)
[2020-10-31 09:30] LABS: CREATININE SERUM 1.16 MG/DL (0.60-1.30)
== END ==
LOC: LAB 08:55
PROVIDERS: ATTEND Nurse Practitioner Family
DX: E11.9 Type 2 diabetes mellitus without complications (principal); I10 Essential (primary) hypertension
CPT/HCPCS: 36415; 80053; 80061; 83036; 84443; 85025

== ENCOUNTER → 2020-12-12 | Outpatient (CLI) | payer MEDICARE ==
[2020-12-12 10:54] LABS: ALBUMIN 4.1 GM/DL (3.2-4.5)
[2020-12-12 10:55] LABS: POTASSIUM 4.6 MMOL/L (3.6-5.0)
[2020-12-12 10:56] LABS: CALCIUM 10.3 MG/DL (8.5-10.1)
[2020-12-12 10:57] LABS: TOTAL PROTEIN 7.5 GM/DL (6.4-8.2)
[2020-12-12 10:59] LABS: BILIRUBIN,TOTAL 0.7 MG/DL (0.1-1.0)
[2020-12-12 11:01] LABS: CREATININE SERUM 1.16 MG/DL (0.60-1.30)
== END ==
LOC: LAB 10:30
PROVIDERS: ATTEND Nurse Practitioner Family
DX: E83.52 Hypercalcemia (principal)
CPT/HCPCS: 36415; 80053

== ENCOUNTER → 2021-02-27 | Outpatient (CLI) | payer MEDICARE ==
[2021-02-27 10:43] LABS: ALBUMIN 4.2 GM/DL (3.2-4.5); POTASSIUM 4.3 MMOL/L (3.6-5.0)
[2021-02-27 10:44] LABS: CALCIUM 10.2 MG/DL (8.5-10.1)
[2021-02-27 10:45] LABS: TOTAL PROTEIN 7.4 GM/DL (6.4-8.2)
[2021-02-27 10:47] LABS: BILIRUBIN,TOTAL 0.8 MG/DL (0.1-1.0)
[2021-02-27 10:49] LABS: CREATININE SERUM 1.13 MG/DL (0.60-1.30)
== END ==
LOC: LAB 10:16
PROVIDERS: ATTEND Nurse Practitioner Family
DX: E11.65 Type 2 diabetes mellitus with hyperglycemia (principal)
CPT/HCPCS: 36415; 80053; 83036

== ENCOUNTER → 2021-05-08 | Outpatient (CLI) | payer MEDICARE ==
[2021-05-08 11:31] LABS: ALBUMIN 4.1 GM/DL (3.2-4.5); BILIRUBIN,TOTAL 0.6 MG/DL (0.1-1.0); CALCIUM 10.4 MG/DL (8.5-10.1); CREATININE SERUM 1.21 MG/DL (0.60-1.30); POTASSIUM 4.7 MMOL/L (3.6-5.0); TOTAL PROTEIN 7.6 GM/DL (6.4-8.2)
== END ==
LOC: LAB 10:58
PROVIDERS: ATTEND Nurse Practitioner Family
DX: N18.30 Chronic kidney disease, stage 3 unspecified (principal); R89.9 Unspecified abnormal finding in specimens from other organs, systems and tissues
CPT/HCPCS: 36415; 80053

== ENCOUNTER → 2021-08-16 | Outpatient (CLI) | payer MEDICARE | LOC: CARD 10:00 | PROVIDERS: ATTEND Internal Medicine Cardiovascular Disease | DX: I10 Essential (primary) hypertension (principal) | CPT/HCPCS: 93306 ==

== ENCOUNTER → 2021-08-21 | Outpatient (CLI) | payer MEDICARE ==
[2021-08-21 10:50] LABS: BASOPHILS % (AUTO) 0 % (0-10); EOSINOPHILS # (AUTO) 0.2 10^3/uL (0.0-0.3); EOSINOPHILS % (AUTO) 3 % (0-10); HEMATOCRIT 45 % (35-52); HEMOGLOBIN 14.2 g/dL (11.5-16.0); LYMPHOCYTES # (AUTO) 1.2 10^3/uL (1.0-4.0); LYMPHOCYTES % (AUTO) 17 % (12-44); MEAN CORPUSCULAR HEMOGLOBIN 30 pg (25-34); MEAN CORPUSCULAR HGB CONC 32 g/dL (32-36); MEAN CORPUSCULAR VOLUME 94 fL (80-99); MEAN PLATELET VOLUME 9.9 fL (9.0-12.2); MONOCYTES # (AUTO) 0.6 10^3/uL (0.0-1.0); MONOCYTES % (AUTO) 8 % (0-12); NEUTROPHILS % (AUTO) 71 % (42-75); PLATELET COUNT 264 10^3/uL (130-400)
[2021-08-21 11:11] LABS: ALBUMIN 4.2 GM/DL (3.2-4.5); BILIRUBIN,TOTAL 0.7 MG/DL (0.1-1.0); CALCIUM 10.6 MG/DL (8.5-10.1); CREATININE SERUM 1.14 MG/DL (0.60-1.30); POTASSIUM 4.2 MMOL/L (3.6-5.0); TOTAL PROTEIN 7.8 GM/DL (6.4-8.2)
[2021-08-21 11:32] LABS: FREE T4 (FREE THYROXINE) 1.03 NG/DL (0.70-1.48)
== END ==
LOC: LAB 10:18
PROVIDERS: ATTEND Nurse Practitioner Family
DX: E11.65 Type 2 diabetes mellitus with hyperglycemia (principal); I12.9 Hypertensive chronic kidney disease with stage 1 through stage 4 chronic kidney disease, or unspecified chronic kidney disease; E03.8 Other specified hypothyroidism; N18.30 Chronic kidney disease, stage 3 unspecified; R60.0 Localized edema
CPT/HCPCS: 36415; 80053; 80061; 83036; 84439; 84443; 85025

== ENCOUNTER → 2021-08-21 | Outpatient (CLI) | payer MEDICARE ==
[2021-08-21 11:33] LABS: POTASSIUM 4.2 MMOL/L (3.6-5.0)
[2021-08-21 11:34] LABS: ALBUMIN 4.2 GM/DL (3.2-4.5); BILIRUBIN,TOTAL 0.7 MG/DL (0.1-1.0); CALCIUM 10.6 MG/DL (8.5-10.1); CREATININE SERUM 1.14 MG/DL (0.60-1.30); TOTAL PROTEIN 7.8 GM/DL (6.4-8.2)
== END ==
LOC: LAB 10:26
PROVIDERS: ATTEND Internal Medicine Cardiovascular Disease
DX: I25.10 Atherosclerotic heart disease of native coronary artery without angina pectoris (principal); R06.09 Other forms of dyspnea; I10 Essential (primary) hypertension; R78.2 Finding of cocaine in blood; I65.23 Occlusion and stenosis of bilateral carotid arteries
CPT/HCPCS: 36415; 80053; 80061

== ENCOUNTER 2021-10-17 16:49 | Emergency (ER) | payer MEDICARE ==
[~2021-10-17] VITALS: Ht 163 cm; Wt 163.3 kg
[2021-10-17] MEDS ORDERED: HYDROcodone/APAP 5 MG/325 MG (LORTAB) TAB PO ONE (17:45)
[2021-10-17 17:57] LABS: BASOPHILS % (AUTO) 0 % (0-10); EOSINOPHILS # (AUTO) 0.2 10^3/uL (0.0-0.3); EOSINOPHILS % (AUTO) 3 % (0-10); HEMATOCRIT 44 % (35-52); HEMOGLOBIN 13.9 g/dL (11.5-16.0); LYMPHOCYTES # (AUTO) 1.5 10^3/uL (1.0-4.0); LYMPHOCYTES % (AUTO) 19 % (12-44); MEAN CORPUSCULAR HEMOGLOBIN 29 pg (25-34); MEAN CORPUSCULAR HGB CONC 32 g/dL (32-36); MEAN CORPUSCULAR VOLUME 93 fL (80-99); MEAN PLATELET VOLUME 9.9 fL (9.0-12.2); MONOCYTES # (AUTO) 0.7 10^3/uL (0.0-1.0); MONOCYTES % (AUTO) 8 % (0-12); NEUTROPHILS # (AUTO) 5.5 10^3/uL (1.8-7.8); NEUTROPHILS % (AUTO) 69 % (42-75); PLATELET COUNT 294 10^3/uL (130-400); WHITE BLOOD COUNT 8.1 10^3/uL (4.3-11.0)
[2021-10-17 18:01] LABS: ALBUMIN 4.1 GM/DL (3.2-4.5); POTASSIUM 4.4 MMOL/L (3.6-5.0)
[2021-10-17 18:02] LABS: CALCIUM 10.5 MG/DL (8.5-10.1)
[2021-10-17 18:03] LABS: TOTAL PROTEIN 7.6 GM/DL (6.4-8.2)
[2021-10-17 18:05] LABS: BILIRUBIN,TOTAL 0.6 MG/DL (0.1-1.0)
[2021-10-17 18:07] LABS: CREATININE SERUM 1.09 MG/DL (0.60-1.30)
[2021-10-17] MEDS ORDERED: HYDROcodone/APAP 5 MG/325 MG (LORTAB) TAB ONE (18:07)
[2021-10-17] MEDS ORDERED: CLINDAMYCIN 150 MG (CLEOCIN) CAP PO ONE (18:15)
[2021-10-17] MEDS ORDERED: CLIN-144 PO (18:21)
--- NOTE | 2021-10-17 18:21 | ED Integumentary General ---
General Chief Complaint: Skin/Wound Problems Stated Complaint: RASH ON LEGS/BOTTOM OF FEET PAIN Nursing Triage Note: PT REPORTS BILAT FOOT PAIN- BILAT LOWER LEGS ARE SWOLLEN, RED, WARM W/ BLISTERS- STARTED 2 WEEKS AGO PER PT Source: patient Exam Limitations: no limitations History of Present Illness Date Seen by Provider: Oct 17, 2021 Time Seen by Provider: 18:07 Initial Comments This is a 66 yo female with history of cellulitis of her bilateral lower extremities who presented for increased redness and pain in her right foot. States she has been given Cephalexin with some relief of symptoms but shortly after stopping her symptoms worsened. She is not sure if she stepped on something or if she injured her foot. Would like evaluation of her right foot pain. No fever, chills, nausea, vomiting, diarrhea, abdominal pain. Allergies and Home Medications Allergies Coded Allergies: No Known Drug Allergies (Unverified , 06/11/18) Patient Home Medication List Home Medication List Reviewed: Yes Acetaminophen (Tylenol Arthritis) 650 Mg Tablet.er, 650 MG PO Q6H PRN for PAIN- MILD, (Reported) Entered as Reported by: DEANGELO KNUTSON on 02/06/19901 Amlodipine Besylate (Amlodipine Besylate) 10 Mg Tablet, 10 MG PO DAILY, (Reported) Entered as Reported by: DEANGELO KNUTSON on 02/06/19901 Aspirin (Aspirin EC) 81 Mg Tablet.dr, 81 MG PO HS, (Reported) Entered as Reported by: DEANGELO KNUTSON on 02/06/19901 Clindamycin HCl (Clindamycin HCl) 300 Mg Capsule, 300 MG PO TID Prescribed by: BRANDY ALMARAZ on 10/17/21 182 Fexofenadine HCl (Jesica Allergy) 180 Mg Tablet, 180 MG PO DAILY PRN for ALLERGY SYMPTOMS, (Reported) Entered as Reported by: DEANGELO KNUTSON on 02/06/19901 Fluticasone Propionate (Flonase Allergy Relief) 9.9 Ml [place].susp, 1 SPRAY NS Q12H, (Reported) Entered as Reported by: DEANGELO KNUTSON on 02/06/19901 Hydrocodone/Acetaminophen (Hydrocodone-Acetamin 5-325 mg) 5 Mg-325 Mg Tablet, 1 TAB PO Q6H PRN for PAIN-MODERATE (5-7) Prescribed by: BRANDY ALMARAZ on 10/17/211915 Irbesartan/Hydrochlorothiazide (Irbesartan-Hctz 300-12.5 mg Tb) 1 Each Tablet, 1 EACH PO DAILY, (Reported) Entered as Reported by: DEANGELO KNUTSON on 02/06/19901 Latanoprost (Latanoprost) 2.5 Ml Drops, 1 DROP OU HS, (Reported) Entered as Reported by: DEANGELO KNUTSON on 02/06/19901 Levothyroxine Sodium (Levothyroxine Sodium) 25 Mcg Tablet, 25 MCG PO DAILY, (Reported) Entered as Reported by: DEANGELO KNUTSON on 02/06/19901 Multivitamin with Minerals (One Daily Complete) 1 Each Tablet, 1 EACH PO HS, (Reported) Entered as Reported by: DEANGELO KNUTSON on 02/06/19907 Naproxen Sodium (Aleve) 220 Mg Tablet, 220 MG PO Q6H PRN for PAIN-MILD, (Report ed) Entered as Reported by: DEANGELO KNUTSON on 02/06/19901 Pumpkin Seed Extract/Soy Germ (Azo Bladder Control Capsule) 300 Mg Capsule, 300 MG PO DAILY, (Reported) Entered as Reported by: DEANGELO KNUTSON on 02/06/19901 Simvastatin (Simvastatin) 20 Mg Tablet, 20 MG PO HS, (Reported) Entered as Reported by: DEANGELO KNUTSON on 02/06/19901 Timolol Maleate (Timolol Maleate 0.5%) 5 Ml Drops, 1 DROP OU DAILY, (Reported) Entered as Reported by: DEANGELO KNUTSON on 02/06/19901 Review of Systems Review of Systems Constitutional: No chills, No fever EENTM: no symptoms reported Respiratory: no symptoms reported Cardiovascular: no symptoms reported Gastrointestinal: no symptoms reported Genitourinary: no symptoms reported Musculoskeletal: no symptoms reported Skin: see HPI Psychiatric/Neurological: No Symptoms Reported Endocrine: No Symptoms Reported Hematologic/Lymphatic: No Symptoms Reported Past Sqiihye-Wbkwvd-Ltvzrv Hx Patient Social History Tobacco Use?: No Substance use?: No Alcohol Use?: No Immunizations Up To Date COVID19 Vaccine [employer]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[employer] Seasonal Allergies Seasonal Allergies: Yes Past Medical History Surgeries: Yes Gallbladder Respiratory: No Currently Using CPAP: No Currently Using BIPAP: No Cardiac: Yes Angina, Heart Murmur, High Cholesterol, Hypertension Neurological: No Genitourinary: Yes ("OVERACTIVE" BLADDER) Gastrointestinal: No Musculoskeletal: No Endocrine: Yes Hypothyroidsim HEENT: Yes Glaucoma Cancer: No Psychosocial: No Integumentary: No Blood Disorders: No Adverse Reaction/Blood Tranf: No Physical Exam Vital Signs Vital Signs - First Documented 10/17/21 17:05 Temp 37.1 Pulse 83 Resp 22 B/P (MAP) 130/80 (97) Pulse Ox 95 O2 Delivery Room Air Capillary Refill : Less Than 3 Seconds General Appearance: WD/WN, no apparent distress HEENT: PERRL/EOMI, normal ENT inspection, TMs normal, pharynx normal Neck: full range of motion, normal inspection Cardiovascular: regular rate, rhythm; No no edema (BLE edema ) Respiratory: lungs clear, normal breath sounds, no respiratory distress, no accessory muscle use Gastrointestinal: normal bowel sounds, non tender, soft Extremities: No normal range of motion (obese, limited ROM, wheelchair bound ); normal capillary refill, pedal edema (BLE), swelling Neurologic/Psychiatric: no motor/sensory deficits, alert, normal mood/affect, oriented x 3 Skin: normal color, warm/dry Skin Problem Location: lower extremities Skin Problem Character: bullous, erythema, scales, warm Progress/Results/Core Measures Results/Orders Lab Results Laboratory Tests Test 10/17/21 17:45 Range/Units White Blood Count 8.1 4.3-11.0 10^3/uL Red Blood Count 4.74 3.80-5.11 10^6/uL Hemoglobin 13.9 11.5-16.0 g/dL Hematocrit 44 35-52 % Mean Corpuscular Volume 93 80-99 fL Mean Corpuscular Hemoglobin 29 25-34 pg Mean Corpuscular Hemoglobin Concent 32 32-36 g/dL Red Cell Distribution Width 13.2 10.0-14.5 % Platelet Count 294 130-400 10^3/uL Mean Platelet Volume 9.9 9.0-12.2 fL Immature Granulocyte % (Auto) 1 % Neutrophils (%) (Auto) 69 42-75 % Lymphocytes (%) (Auto) 19 12-44 % Monocytes (%) (Auto) 8 0-12 % Eosinophils (%) (Auto) 3 0-10 % Basophils (%) (Auto) 0 0-10 % Neutrophils # (Auto) 5.5 1.8-7.8 10^3/uL Lymphocytes # (Auto) 1.5 1.0-4.0 10^3/uL Monocytes # (Auto) 0.7 0.0-1.0 10^3/uL Eosinophils # (Auto) 0.2 0.0-0.3 10^3/uL Basophils # (Auto) 0.0 0.0-0.1 10^3/uL Immature Granulocyte # (Auto) 0.1 0.0-0.1 10^3/uL Sodium Level 142 135-145 MMOL/L Potassium Level 4.4 3.6-5.0 MMOL/L Chloride Level 103 98-107 MMOL/L Carbon Dioxide Level 24 21-32 MMOL/L Anion Gap 15 H 5-14 MMOL/L Blood Urea Nitrogen 23 H 7-18 MG/DL Creatinine 1.09 0.60-1.30 MG/DL Estimat Glomerular Filtration Rate 56 BUN/Creatinine Ratio 21 Glucose Level 175 H 70-105 MG/DL Calcium Level 10.5 H 8.5-10.1 MG/DL Corrected Calcium 10.4 H 8.5-10.1 MG/DL Total Bilirubin 0.6 0.1-1.0 MG/DL Aspartate Amino Transf (AST/SGOT) 20 5-34 U/L Alanine Aminotransferase (ALT/SGPT) 19 0-55 U/L Alkaline Phosphatase 100 40-136 U/L Total Protein 7.6 6.4-8.2 GM/DL Albumin 4.1 3.2-4.5 GM/DL Micro Results Microbiology 10/17/21 Gram Stain - Final, Resulted 10/17/21 Wound Culture - Preliminary, Resulted Mixed Bacterial Carolann Staphylococcus aureus Pseudomonas aeruginosa My Orders Orders - BRANDY ALMARAZ APRN Ed Iv/Invasive Line Start (10/17/21 17:38) Cbc With Automated Diff (10/17/21 17:38) Comprehensive Metabolic Panel (10/17/21 17:38) Wound Culture (10/17/21 17:38) Hydrocodone/Apap 5/325 Tablet (Lortab 5 (10/17/21 17:45) Foot, Right, 2 View (10/17/21 17:38) Clindamycin Capsule (Cleocin Capsule) (10/17/21 18:15) Hydrocodone/Apap 5/325 Tablet (Lortab 5 (10/17/21 18:07) Medications Given in ED Vital Signs/I&O 10/17/21 10/17/21 17:05 19:15 Temp 37.1 36.6 Pulse 83 81 Resp 22 18 B/P (MAP) 130/80 (97) 171/81 Pulse Ox 95 96 O2 Delivery Room Air Room Air Blood Pressure Mean: 97 Diagnostic Imaging Diagonstic Imaging: Xray Comments [facility], [place] NAME: REJI RANGEL [facility] REC#: [id number] PT STATUS: DEP ER : 1955 PHYSICIAN: BRANDY ALMARAZ APRN ADMIT DATE: 10/17/21/ER Signed Date of Exam:10/17/21 FOOT, RIGHT, 2 VIEW INDICATION: Bilateral foot pain, swelling and redness with warmth and blisters. EXAMINATION: Right foot, 10/17/2021. FINDINGS: 2 views of the foot. There is marked soft tissue prominence about the foot and ankle. Plantar calcaneal spurring is noted with marked spurring and degenerative disease along the dorsum of the midfoot. There is a hallux valgus deformity with narrowing at the 1st metatarsophalangeal joint. No acute fracture or dislocation. No destructive osseous findings. IMPRESSION: Diffuse chronic findings with no acute osseous abnormality. Dictated by: Dictated on workstation # [id number] Dict: 10/17/211901 Trans: 10/17/211930 [facility] [id number] Interpreted by: SCOTT ESPINAL MD Electronically signed by: SCOTT ESPINAL MD 10/17/211930 Departure Impression Primary Impression: Cellulitis of both lower extremities Disposition: 01 HOME, SELF-CARE Condition: Stable Departure-Patient Inst. Decision time for Depature: 18:18 Referrals: CHANTALE HERNANDEZ MD (PCP/Family) Primary Care Physician Patient Instructions: Cellulitis (Skin Infection), Adult ED Add. Discharge Instructions: Plan: 1. Take Clindamycin daily as directed. 2. Have close follow up with Dr. Hernandez, please call office tomorrow to schedule. 3. Wash gently with mild soap and water, pat dry. 4. Return for any new, concerning, or worsening symptoms. All discharge instructions reviewed with patient and/or family. Voiced understanding. Scripts Hydrocodone/Acetaminophen (Hydrocodone-Acetamin 5-325 mg) 5 Mg-325 Mg Tablet 1 TAB PO Q6H PRN for PAIN-MODERATE (5-7), #10 TAB 0 Refills Prov: BRANDY ALMARAZ SENSITOMETRIST 10/17/21 Clindamycin HCl (Clindamycin HCl) 300 Mg Capsule 300 MG PO TID for 7 Days, #21 CAP 0 Refills Prov: BRANDY ALMARAZ SENSITOMETRIST 10/17/21 BRANDY ALMARAZ SENSITOMETRIST Oct 17, 2021 18:21
--- NOTE | 2021-10-17 19:10 | Diagnostic Imaging Report ---
INDICATION: Bilateral foot pain, swelling and redness with warmth and blisters. EXAMINATION: Right foot, 10/17/2021. FINDINGS: 2 views of the foot. There is marked soft tissue prominence about the foot and ankle. Plantar calcaneal spurring is noted with marked spurring and degenerative disease along the dorsum of the midfoot. There is a hallux valgus deformity with narrowing at the 1st metatarsophalangeal joint. No acute fracture or dislocation. No destructive osseous findings. IMPRESSION: Diffuse chronic findings with no acute osseous abnormality. Dictated by: Dictated on workstation # [id number]
[2021-10-17 19:15] VITALS: BP 171/81
[2021-10-17] MEDS ORDERED: ACHD5005 PO (19:15)
== END 2021-10-17 19:19 | disposition home or self-care (01) ==
LOC: EDUNIT# 16:49 → ER 16:51
DX: L03.116 Cellulitis of left lower limb (principal); L03.115 Cellulitis of right lower limb
CPT/HCPCS: 36415; 73620; 80053; 85025; 87070; 87077; 87205

== ENCOUNTER → 2021-12-10 | Outpatient (CLI) | payer MEDICARE ==
[~2021-12-10] MED LIST changes: +ACHD5005 PO; +CLIN-144 PO
--- NOTE | 2021-12-10 11:05 | Diagnostic Imaging Report ---
INDICATION: Shortness of breath. Comparison is made to prior chest 02/06/2019. Heart is enlarged. Lung volumes are slightly diminished likely owing to poor aspiration. No infiltrate or failure is seen. There is no effusion or pneumothorax. IMPRESSION: Cardiomegaly. No other significant abnormality is detected. Dictated by: Dictated on workstation # [id number]
== END ==
LOC: RAD 10:01
PROVIDERS: ATTEND Family Medicine
DX: I51.7 Cardiomegaly (principal)
CPT/HCPCS: 71046

== ENCOUNTER → 2023-01-13 | Outpatient (CLI) | payer MEDICARE ==
[~2023-01-13] MED LIST changes: +TIMO5DRO16 OU; -TIMO5DRO5 OU
== END ==
LOC: CARD 08:15
PROVIDERS: ATTEND Internal Medicine Cardiovascular Disease
DX: I11.9 Hypertensive heart disease without heart failure (principal)
CPT/HCPCS: 93306